=== PATIENT | male | born 1940 | race Hispanic/Latino ===

== ENCOUNTER → 2018-02-17 | Outpatient (CLI) | payer OTHER ==
[~2018-02-17] VITALS: Ht 180.3 cm; Wt 99.8 kg
[~2018-02-17] MED LIST: ALLO300T2 PO; AMLO10TA6 PO; ASPI-555 PO; ATOR40TA71 PO; CETI10TA86 PO; DOXA1TAB2 PO; ENAL20TA PO; FERR-82 PO; FLUT100P6 PUFF; FURO40TA5 PO; GLIP10TA9 PO; HYDR100T27 PO; METO-408 PO; REGADENOSON 0.4 MG/5 ML PF SYG IVP SCH; SITA50TA PO; TAMS-1 PO; TERB250T51 PO; TRAM100T34 PO
== END | disposition home or self-care (01) ==
LOC: SHCH 09:08
PROVIDERS: ATTEND Internal Medicine Cardiovascular Disease
DX: I25.10 Atherosclerotic heart disease of native coronary artery without angina pectoris (principal); E11.9 Type 2 diabetes mellitus without complications; E78.5 Hyperlipidemia, unspecified; M17.0 Bilateral primary osteoarthritis of knee; Z90.49 Acquired absence of other specified parts of digestive tract; Z87.891 Personal history of nicotine dependence
CPT/HCPCS: 78452; 93017; 96374; A9500 ×2; J2785

== ENCOUNTER 2018-07-31 08:27 | Day surgery (SDC) | payer OTHER ==
[2018-07-29 16:19] LABS: BASOPHILS % (AUTO) 1.2 % (0.0-5.0); EOSINOPHILS % (AUTO) 5.9 % (0.0-8.0); HEMATOCRIT 36.5 % (42-54); LYMPHOCYTES % (AUTO) 25.3 % (21.0-51.0); MEAN CORPUSCULAR HEMOGLOBIN 29.2 pg (27.0-33.0); MEAN CORPUSCULAR HGB CONC 32.8 g/dL (32.0-36.0); MEAN CORPUSCULAR VOLUME 88.9 fL (79-99); MONOCYTES % (AUTO) 10.1 % (3.0-13.0); NEUTROPHILS % (AUTO) 57.5 % (40.0-77.0); NUCLEATED RED BLOOD CELLS 0.1 % (0.0-0.19); PLATELET COUNT (AUTO) 243 K/uL (130-400); RED BLOOD CELL COUNT(AUTO) 4.11 MIL/uL (4.50-6.20); RED CELL DISTRIBUTION WIDTH 17.4 % (11.0-15.5); WHITE BLOOD COUNT (AUTO) 6.5 K/uL (4.8-10.8)
[2018-07-29 16:43] VITALS: BP 155/70
[2018-07-29 16:47] LABS: CREATININE 1.3 mg/dL (0.5-1.5)
--- NOTE | 2018-07-29 18:15 | NUR ---
ABNORMAL EKG REPORTED ABNORMAL EKG TO DR. GLORIA MD ANESTHESIA. HE WANTS DR. BROOKE NOTIFIED OF HEART RATE OF [address]KG[address] WILL NOTIFY [address] BROOKE. NO NEW ORDERS GIVEN. OK TO PROCEED WITH SURGERY.
--- NOTE | 2018-07-29 18:19 | NUR ---
ABNORMAL EKG PAGED CINTHIA CASTILLO FOR DR. BROOKE TO REPORT HEART RATE OF [address] GLORIA MD ANESTHESIA. PENDING CALL BACK FROM [facility] VEGA.
--- NOTE | 2018-07-30 08:08 | NUR ---
ABNORMAL EKG NOTIFIED CINTHIA CASTILLO FOR DR. BROOKE REGARDING HEART RATE OF 43 ON EKG. PER SOFIA FOR PATIENT TO REDUCE DOSE OF METOPROLOL 25MG TWICE A DAY TO 12.5MG TWICE A DAY. ALSO TO HOLD METOPROLOL MEDICATION THE DAY OF PROCEDURE. PATIENT NOTIFIED OF NEW INSTRUCTIONS ON MEDICATION AND ALSO TO HOLD ON MEDICATION MORNING OF PROCEDURE. PATIENT VERBALIZED UNDERSTANDING.
[2018-07-31] VITALS (16 sets, daily range): BP systolic 127–157; BP diastolic 53–97
[~2018-07-31] VITALS: Ht 180.3 cm; Wt 95.7 kg
[2018-07-31] MEDS: MEROPENEM 500 MG VIAL IVP SCH ×2 (06:00→10:40)
[~2018-07-31 08:27] MED LIST changes: +ALLO100T PO; -ALLO300T2 PO; -AMLO10TA6 PO; +AMLO5TAB9 PO; -ATOR40TA71 PO; -CETI10TA86 PO; -DOXA1TAB2 PO; -FLUT100P6 PUFF; -FURO40TA5 PO; -METO-408 PO; +METO25TA6 PO; +MULT-1296 PO; -REGADENOSON 0.4 MG/5 ML PF SYG IVP SCH; -TAMS-1 PO; +TAMS0.4C32 PO; -TERB250T51 PO; -TRAM100T34 PO
[2018-07-31] MEDS ORDERED: SODIUM CHLORIDE 0.9% 1000ML 1,000 ML IV ONE (09:20)
--- NOTE | 2018-07-31 10:01 | NUR ---
ASSESS LEGALLY BLIND LEFT EYE Addendum: 07/31/18 at 1002 by FANTASMA FLEMING RN RN Amended: Links added.
[2018-07-31] MEDS ORDERED: BACL10TA PO (10:14)
[2018-07-31] MEDS ORDERED: METOPROLOL PO (10:14)
[2018-07-31] MEDS ORDERED: LIDOCAINE PF 2% 5ML ABBOJECT ONE (10:31)
[2018-07-31] MEDS ORDERED: PROPOFOL 10 MG/ML 20ML VIAL IV ONE (10:32)
[2018-07-31] MEDS ORDERED: FENTANYL CITRATE PF 50 MCG/1 ML 2ML VIAL ONE (10:32)
[2018-07-31] MEDS ORDERED: GENTAMICIN 80 MG/NS 100 ML PB 100 ML IV ONE (10:57)
[2018-07-31] MEDS ORDERED: EPHEDRINE SULFATE 50 MG/ML AMPULE ONE (11:11)
[2018-07-31] MEDS ORDERED: MORPHINE SULFATE 2 MG/ML 1ML SYG ONE (11:59)
[2018-07-31] MEDS ORDERED: OPIUM/BELLADONNA ALKALOIDS 1 EACH SUPP.RECT RC ONE (11:59)
[2018-07-31] MEDS ORDERED: MEPERIDINE-PF 25 MG/ML SYG ONE ×2 (12:16→12:35)
--- NOTE | 2018-07-31 13:40 | NUR ---
PATIENT RECEIVED NEW PT FROM PACU, S/P GREENLIGHT LASER. [address] DRAINING CLEAR YELLOW URINE. DRESSING TO PENIS DRY AND INTACT, FC SECURED TO LEG. PT AWAKE AND ALERT, NO DISTRESS NOTED. VS STABLE ON ARRIVAL.
--- NOTE | 2018-07-31 14:05 | NUR ---
DC DC INSTRUCTIONS GIVEN TO PT SPOUSE WITH RX , INSTRUCTED ON NEW MED REGIMEN AND POSSIBLE SIDE EFFECTS. INSTRUCTED TO F/U WITH DR. BAH. INSTRUCTED ON CHANG CARE, LEG BAG , PT AND SPOUSE "STATED FAMILIAR WITH THAT CARE" PT HAS HAD FC IN THE PAST".
--- NOTE | 2018-07-31 14:10 | NUR ---
DC PT DC HOME VIA WC, NO DISTRESS NOTED. [address], LEG BAG IN PLACE, PT STATED HAS HAD FC IN THE PAST IF FULLY AWARE OF CARE. ACCOMPANIED BY SPOUSE, NO PIV NOTED. NO DISTRESS NOTED. DENIES ANY PAIN OR DISCOMFORTS
== END 2018-07-31 14:10 | disposition home or self-care (01) ==
LOC: DAH 08:27
PROVIDERS: ATTEND Urology
DX: N40.1 Benign prostatic hyperplasia with lower urinary tract symptoms (principal); R39.14 Feeling of incomplete bladder emptying; N30.20 Other chronic cystitis without hematuria; Z98.890 Other specified postprocedural states; N45.2 Orchitis; E11.9 Type 2 diabetes mellitus without complications; I10 Essential (primary) hypertension; M10.9 Gout, unspecified; Z79.899 Other long term (current) drug therapy; Z79.84 Long term (current) use of oral hypoglycemic drugs; E78.00 Pure hypercholesterolemia, unspecified; Z79.01 Long term (current) use of anticoagulants
CPT/HCPCS: 36415; 52648; 80048; 82948 ×2; 85025; 87077; 87088; 87186; 88305; 93005; A4218; A4340; A4354; A4358; A4510; A4600; J1580; J2001; J2175 ×2; J2185; J2704; J3010; J3490; J7030 ×2

== ENCOUNTER → 2018-09-23 | Outpatient (CLI) | payer OTHER ==
[~2018-09-23] MED LIST changes: -ASPI-555 PO; +BACL10TA PO; -METO25TA6 PO; +METOPROLOL PO
== END | disposition home or self-care (01) ==
LOC: RAH 13:42
PROVIDERS: ATTEND Internal Medicine
DX: M50.10 Cervical disc disorder with radiculopathy, unspecified cervical region (principal); M48.02 Spinal stenosis, cervical region; M25.78 Osteophyte, vertebrae
CPT/HCPCS: 72141

== ENCOUNTER 2020-05-29 08:05 | Inpatient (IN) | payer OTHER ==
[~2020-05-29] VITALS: Ht 175.3 cm; Wt 89.3 kg
[~2020-05-29 08:05] MED LIST changes: +AMLO-257 PO; -AMLO5TAB9 PO; -ENAL20TA PO; +ENAL20TA18 PO
[2020-05-29 08:52] LABS: BASOPHILS % (AUTO) 0.1 % (0.0-5.0); HEMATOCRIT 35.9 % (42-54); LYMPHOCYTES % (AUTO) 7.3 % (21.0-51.0); MEAN CORPUSCULAR HGB CONC 32.9 g/dL (32.0-36.0); MEAN CORPUSCULAR VOLUME 91.3 fL (79-99); MONOCYTES % (AUTO) 7.2 % (3.0-13.0); NEUTROPHILS % (AUTO) 85.1 % (40.0-77.0); PLATELET COUNT (AUTO) 229 K/uL (130-400); RED BLOOD CELL COUNT(AUTO) 3.93 MIL/uL (4.50-6.20); RED CELL DISTRIBUTION WIDTH 13.2 % (11.0-15.5); WHITE BLOOD COUNT (AUTO) 7.1 K/uL (4.8-10.8)
[2020-05-29 09:04] LABS: ALBUMIN 2.8 g/dL (3.5-5.0); BILIRUBIN,TOTAL 0.7 mg/dL (0.2-1.0); CREATININE 2.5 mg/dL (0.5-1.5); INR 1.02 (0.85-1.15); POTASSIUM 4.3 mmol/L (3.5-5.1); PROTHROMBIN TIME 10.9 SEC (9.6-11.6); TOTAL PROTEIN, SERUM 6.6 g/dL (6.0-8.3)
[2020-05-29] MEDS ORDERED: ALBUTEROL INHALER 90MCG/INH IH ONE (09:18)
[2020-05-29] MEDS ORDERED: DEXAMETHASONE SOD PHOSPHATE 10MG/ML 1ML VIAL ONE (09:18)
[2020-05-29] MEDS ORDERED: AZITHROMYCIN 500MG+NS 250ML 250 ML IV ONE (09:18)
[2020-05-29] MEDS ORDERED: CEFTRIAXONE 1G VIAL ONE (09:18)
[2020-05-29 10:00] LABS: ERYTHROCYTE SEDIMENTATION RATE 80 MM/HR (0-20)
[2020-05-29 10:48] LABS: ABG BASE EXCESS -9.8 mmol/L (-2.0-3.0); ABG HCO3 15.2 mmol/L (21.0-28.0); ABG PCO2 31 mmHg (35-48)
[2020-05-29] MEDS: INSULIN HUMULIN R 100 UNIT/ML 3ML IV SCH (11:45)
[2020-05-29] MEDS ORDERED: ERGOCALCIFEROL (VITAMIN D2) 50,000 UNIT CAPSULE PO ONE (11:45)
[2020-05-29] MEDS ORDERED: DEXAMETHASONE SOD PHOSPHATE 4 MG/ML 1ML VIAL IVP SCH (11:45)
[2020-05-29] MEDS: PHARMACY COMMUNICATION MISC SCH ×2 (12:15→18:15)
[2020-05-29] MEDS ORDERED: 0.9%NACL 100ML 100 ML IV ONE (12:22)
[2020-05-29] MEDS ORDERED: INSULIN HUMULIN R 100 UNIT/ML 3ML ONE ×2 (12:24→12:32)
[2020-05-29] MEDS ORDERED: INSULIN REGULAR, HUMAN 3ML 100 UNIT in 0.9%NACL 100ML 99 ML IV SCH ×2 (12:30)
[2020-05-29 12:57] LABS: CREATININE 2.4 mg/dL (0.5-1.5); MAGNESIUM 2.4 mg/dL (1.80-2.40); POTASSIUM 4.9 mmol/L (3.5-5.1)
[2020-05-29] MEDS ORDERED: ERGOCALCIFEROL (VITAMIN D2) 50,000 UNIT CAPSULE ONE (13:06)
[2020-05-29] MEDS ORDERED: ACETYLCYSTEINE 600 MG CAPSULE ONE (13:06)
[2020-05-29] MEDS ORDERED: ZINC SULFATE 220 CAPSULE ONE (13:06)
[2020-05-29] MEDS ORDERED: ASCORBIC ACID 500 MG TAB ONE (13:06)
[2020-05-29] MEDS ORDERED: ENOXAPARIN SODIUM 60 MG/0.6 ML SQ ONE (13:36)
[2020-05-29] MEDS ORDERED: ETOMIDATE 20MG VIAL IVP ONE (15:08)
[2020-05-29 17:43] LABS: CREATININE 2.2 mg/dL (0.5-1.5); MAGNESIUM 2.3 mg/dL (1.80-2.40); POTASSIUM 4.6 mmol/L (3.5-5.1)
[2020-05-29 18:39] LABS: ABG BASE EXCESS -9.8 mmol/L (-2.0-3.0); ABG HCO3 15.5 mmol/L (21.0-28.0); ABG OXYGEN SATURATION 98.5 % (95.0-99.0); ABG PCO2 33 mmHg (35-48)
[2020-05-29] MEDS ORDERED: ENOXAPARIN SODIUM 60 MG/0.6 ML SQ SCH (21:00)
[2020-05-29] MEDS ORDERED: FAMOTIDINE 20MG VIAL IV SCH (21:00)
[2020-05-29] MEDS ORDERED: ACETYLCYSTEINE 600 MG CAPSULE PO SCH (21:00)
[2020-05-30] MEDS: PHARMACY COMMUNICATION MISC SCH ×4 (00:15→18:15)
[2020-05-30 00:44] LABS: MAGNESIUM 2.3 mg/dL (1.80-2.40); POTASSIUM 4.3 mmol/L (3.5-5.1)
[2020-05-30 01:54] LABS: ABG BASE EXCESS -8.3 mmol/L (-2.0-3.0); ABG HCO3 16.7 mmol/L (21.0-28.0); ABG OXYGEN SATURATION 93.7 % (95.0-99.0); ABG PCO2 33 mmHg (35-48)
[2020-05-30 04:53] LABS: MAGNESIUM 2.3 mg/dL (1.80-2.40); POTASSIUM 4.3 mmol/L (3.5-5.1)
[2020-05-30] MEDS ORDERED: ONDANSETRON 4MG INJ ONE (05:34)
[2020-05-30 05:50] LABS: ABG HCO3 16.1 mmol/L (21.0-28.0); ABG OXYGEN SATURATION 94.9 % (95.0-99.0); ABG PCO2 33 mmHg (35-48)
[2020-05-30] MEDS ORDERED: ENOXAPARIN SODIUM 60 MG/0.6 ML SQ ONE ×2 (08:37→20:25)
[2020-05-30] MEDS ORDERED: FAMOTIDINE 20MG VIAL IV ONE ×2 (08:37→20:25)
[2020-05-30] MEDS ORDERED: ZINC SULFATE 220 CAPSULE PO SCH (09:00)
[2020-05-30] MEDS ORDERED: ASCORBIC ACID 500 MG TAB PO SCH (09:00)
[2020-05-30] MEDS ORDERED: CEFTRIAXONE 1G VIAL IVP SCH (10:30)
[2020-05-30] MEDS ORDERED: PROPOFOL 1000 MG/100 ML 100 ML IV ONE ×3 (10:37→22:45)
[2020-05-30] MEDS ORDERED: FENTANYL 2500MCG+NS 250ML 250 ML IV ONE (10:38)
[2020-05-30] MEDS ORDERED: DEXAMETHASONE 10MG/ML 1ML VIAL 6 MG in 0.9%NACL 50ML 50 ML IV SCH (11:08)
[2020-05-30] MEDS ORDERED: DOXYCYCLINE HYCLATE 100 MG TABLET PO SCH (11:09)
[2020-05-30] MEDS: INSULIN HUMULIN R 100 UNIT/ML 3ML IV SCH (11:45)
[2020-05-30 12:16] LABS: ABG BASE EXCESS -14.7 mmol/L (-2.0-3.0); ABG OXYGEN SATURATION 97.3 % (95.0-99.0); ABG PCO2 93 mmHg (35-48)
[2020-05-30] MEDS ORDERED: 0.9% NACL 250ML 250 ML IV ONE (12:17)
[2020-05-30] MEDS ORDERED: SODIUM BICARB 8.4% 50ML SYRINGE IVP STA (12:21)
[2020-05-30] MEDS ORDERED: SODIUM BICARB 50MEQ 50ML VIAL 150 ML ONE (12:24)
[2020-05-30 13:13] LABS: ABG BASE EXCESS -8.2 mmol/L (-2.0-3.0); ABG HCO3 23.2 mmol/L (21.0-28.0); ABG OXYGEN SATURATION 98.8 % (95.0-99.0); ABG PCO2 76 mmHg (35-48)
[2020-05-30] MEDS ORDERED: CISATRACURIUM BESYLATE 100 MG in 0.9%NACL 100ML 100 ML IV SCH (13:47)
[2020-05-30] MEDS ORDERED: CEFTRIAXONE 1G VIAL ONE (14:14)
[2020-05-30] MEDS: INSULIN HUMULIN R 100 UNIT/ML 3ML SQ SCH (18:00)
[2020-05-30] MEDS ORDERED: INSULIN HUMULIN R 100 UNIT/ML 3ML ONE (18:18)
[2020-05-30] MEDS ORDERED: 0.9% NACL 500ML IV.SOLN 500 ML IV ONE (18:45)
[2020-05-30] MEDS ORDERED: DOXYCYCLINE 100MG+NS 250ML 250 ML IV ONE (20:25)
[2020-05-30] MEDS: DEXAMETHASONE SOD PHOSPHATE 4 MG/ML 1ML VIAL IVP SCH (21:00)
[2020-05-30] MEDS: INSULIN GLARGINE 100 UNITS/ML 10 ML VIAL SQ SCH (21:00)
[2020-05-30] MEDS ORDERED: ENOXAPARIN SODIUM 60 MG/0.6 ML SQ SCH (21:00)
[2020-05-30] MEDS ORDERED: ENOXAPARIN SODIUM 100 MG/1 ML SQ SCH (21:00)
[2020-05-31] MEDS: PHARMACY COMMUNICATION MISC SCH ×4 (00:15→18:15)
[2020-05-31 03:34] LABS: BASOPHILS % (AUTO) 0.1 % (0.0-5.0); HEMATOCRIT 26.3 % (42-54); LYMPHOCYTES % (AUTO) 2.6 % (21.0-51.0); MEAN CORPUSCULAR HEMOGLOBIN 30.2 pg (27.0-33.0); MEAN CORPUSCULAR HGB CONC 32.7 g/dL (32.0-36.0); MEAN CORPUSCULAR VOLUME 92.3 fL (79-99); MONOCYTES % (AUTO) 2.7 % (3.0-13.0); PLATELET COUNT (AUTO) 266 K/uL (130-400); RED BLOOD CELL COUNT(AUTO) 2.85 MIL/uL (4.50-6.20); RED CELL DISTRIBUTION WIDTH 13.5 % (11.0-15.5); WHITE BLOOD COUNT (AUTO) 13.8 K/uL (4.8-10.8)
[2020-05-31 04:00] LABS: ALBUMIN 1.9 g/dL (3.5-5.0); BILIRUBIN,TOTAL 0.5 mg/dL (0.2-1.0); CREATININE 3.1 mg/dL (0.5-1.5); MAGNESIUM 2.3 mg/dL (1.80-2.40); POTASSIUM 4.8 mmol/L (3.5-5.1)
[2020-05-31 04:12] LABS: CRP QUANTITATIVE 173.5 mg/L (0.00-9.0)
[2020-05-31] MEDS ORDERED: INSULIN HUMULIN R 100 UNIT/ML 3ML ONE ×4 (05:48→22:13)
[2020-05-31] MEDS ORDERED: PROPOFOL 1000 MG/100 ML 100 ML IV ONE ×4 (05:55→21:06)
[2020-05-31] MEDS: INSULIN HUMULIN R 100 UNIT/ML 3ML SQ SCH ×4 (06:00→18:00)
[2020-05-31 07:48] LABS: ABG BASE EXCESS -4.2 mmol/L (-2.0-3.0); ABG HCO3 20.9 mmol/L (21.0-28.0); ABG OXYGEN SATURATION 95.4 % (95.0-99.0); ABG PCO2 39 mmHg (35-48)
[2020-05-31] MEDS: DEXAMETHASONE SOD PHOSPHATE 4 MG/ML 1ML VIAL IVP SCH ×2 (09:00→21:00)
[2020-05-31] MEDS ORDERED: DEXAMETHASONE SOD PHOSPHATE 10MG/ML 1ML VIAL ONE (10:31)
[2020-05-31] MEDS ORDERED: ENOXAPARIN SODIUM 100 MG/1 ML SQ ONE (10:31)
[2020-05-31] MEDS ORDERED: DOXYCYCLINE 100MG+NS 250ML 250 ML IV ONE (10:31)
[2020-05-31] MEDS ORDERED: CEFTRIAXONE 1G VIAL ONE (10:32)
[2020-05-31] MEDS ORDERED: FAMOTIDINE 20MG VIAL IV ONE ×2 (10:32→22:40)
[2020-05-31] MEDS ORDERED: RENAL DOSE IV SCH (11:15)
[2020-05-31] MEDS: CEFEPIME HCL 2 GM VIAL IVP SCH (11:15)
[2020-05-31] MEDS ORDERED: VANCOMYCIN 500MG+NS 100ML 100 ML IV SCH (11:15)
[2020-05-31] MEDS ORDERED: COMPOUND IV REFRIGERATED 1 EACH IVSOLN MISC PRN (11:30)
[2020-05-31] MEDS: INSULIN HUMULIN R 100 UNIT/ML 3ML IV SCH (11:45)
[2020-05-31] MEDS ORDERED: VANCOMYCIN 1G 1.25 GM in 0.9% NACL 250ML 250 ML IV SCH (12:00)
[2020-05-31] MEDS ORDERED: CEFEPIME HCL 1 GM VIAL ONE (13:15)
[2020-05-31] MEDS ORDERED: 0.9%NACL 50ML 50 ML IV ONE (13:16)
[2020-05-31] MEDS ORDERED: FENTANYL 2500MCG+NS 250ML 250 ML IV ONE (15:08)
[2020-05-31] MEDS ORDERED: ACETAMINOPHEN 650 MG SUPPOSITORY RC ONE (17:37)
[2020-05-31] MEDS: INSULIN GLARGINE 100 UNITS/ML 10 ML VIAL SQ SCH (21:00)
[2020-05-31] MEDS ORDERED: DEXAMETHASONE SOD PHOSPHATE 4 MG/ML 1ML VIAL ONE (22:37)
[2020-06-01] VITALS (72 sets, daily range): BP systolic 124–184; BP diastolic 39–65
[2020-06-01] MEDS: PHARMACY COMMUNICATION MISC SCH ×4 (00:15→17:34)
[2020-06-01] MEDS ORDERED: PROPOFOL 1000 MG/100 ML 100 ML IV ONE ×2 (01:27→04:30)
[2020-06-01] MEDS ORDERED: PANTOPRAZOLE 40 MG/VIAL IVP SCH ×2 (03:45→09:00)
[2020-06-01 04:18] LABS: ABG BASE EXCESS -7.3 mmol/L (-2.0-3.0); ABG OXYGEN SATURATION 95.7 % (95.0-99.0); ABG PCO2 53 mmHg (35-48)
[2020-06-01] MEDS: INSULIN HUMULIN R 100 UNIT/ML 3ML SQ SCH ×4 (06:00→17:30)
[2020-06-01 07:18] LABS: BASOPHILS % (AUTO) 0.1 % (0.0-5.0); HEMATOCRIT 31.4 % (42-54); LYMPHOCYTES % (AUTO) 3.2 % (21.0-51.0); MEAN CORPUSCULAR HGB CONC 31.5 g/dL (32.0-36.0); MEAN CORPUSCULAR VOLUME 95.2 fL (79-99); MONOCYTES % (AUTO) 4.6 % (3.0-13.0); NUCLEATED RED BLOOD CELLS 0.2 % (0.0-0.19); PLATELET COUNT (AUTO) 308 K/uL (130-400); RED CELL DISTRIBUTION WIDTH 13.9 % (11.0-15.5); WHITE BLOOD COUNT (AUTO) 12.6 K/uL (4.8-10.8)
[2020-06-01] MEDS: DEXAMETHASONE SOD PHOSPHATE 4 MG/ML 1ML VIAL IVP SCH ×2 (07:48→21:07)
[2020-06-01 07:52] LABS: ALBUMIN 2.1 g/dL (3.5-5.0); BILIRUBIN,TOTAL 0.4 mg/dL (0.2-1.0); CREATININE 4.5 mg/dL (0.5-1.5); CRP QUANTITATIVE 158.8 mg/L (0.00-9.0); PHOSPHORUS 6.7 mg/dL (2.5-4.9); POTASSIUM 5.3 mmol/L (3.5-5.1); TOTAL PROTEIN, SERUM 6.7 g/dL (6.0-8.3)
[2020-06-01] MEDS ORDERED: DEXMEDETOMIDINE HCL 200 MCG/2 ML VIAL IV ONE (09:24)
[2020-06-01] MEDS ORDERED: DEXMEDETOMIDINE HCL 400 MCG in 0.9%NACL 100ML 100 ML IV SCH (09:30)
[2020-06-01] MEDS ORDERED: WATER FOR INJECTION STERILE IVP SCH (11:00)
[2020-06-01] MEDS ORDERED: SODIUM BICARB 8.4% IVP SCH (11:00)
[2020-06-01] MEDS ORDERED: SYRING IVP SCH (11:00)
[2020-06-01] MEDS: CEFEPIME HCL 2 GM VIAL IVP SCH (11:40)
[2020-06-01] MEDS: INSULIN HUMULIN R 100 UNIT/ML 3ML IV SCH (11:42)
[2020-06-01] MEDS: LINEZOLID 600 MG/ISO-OSM 300 ML IV SCH (12:45)
[2020-06-01] MEDS: DOCUSATE NA 100MG/10ML UDCUP PO SCH ×2 (14:15→21:09)
[2020-06-01] MEDS ORDERED: KAYEXALATE 15GM/60ML PO SCH (14:15)
[2020-06-01] MEDS ORDERED: POLYETHYLENE GLYCOL 3350 17 GM POWD.PACK PO PRN (14:15)
[2020-06-01] MEDS ORDERED: FENTANYL 2500MCG+NS 250ML 250 ML IV ONE (18:52)
[2020-06-01] MEDS: INSULIN GLARGINE 100 UNITS/ML 10 ML VIAL SQ SCH (21:09)
[2020-06-02] VITALS (31 sets, daily range): BP systolic 109–193; BP diastolic 41–59
[2020-06-02] MEDS: INSULIN HUMULIN R 100 UNIT/ML 3ML SQ SCH ×5 (00:05→23:25)
[2020-06-02] MEDS: PHARMACY COMMUNICATION MISC SCH ×5 (00:28→23:47)
[2020-06-02] MEDS: LINEZOLID 600 MG/ISO-OSM 300 ML IV SCH ×3 (00:45→19:14)
[2020-06-02 04:09] LABS: BASOPHILS % (AUTO) 0.1 % (0.0-5.0); LYMPHOCYTES % (AUTO) 4.6 % (21.0-51.0); MEAN CORPUSCULAR HEMOGLOBIN 29.6 pg (27.0-33.0); MEAN CORPUSCULAR HGB CONC 32.1 g/dL (32.0-36.0); MEAN CORPUSCULAR VOLUME 92.4 fL (79-99); MONOCYTES % (AUTO) 5.9 % (3.0-13.0); NEUTROPHILS % (AUTO) 87.3 % (40.0-77.0); PLATELET COUNT (AUTO) 293 K/uL (130-400); RED BLOOD CELL COUNT(AUTO) 3.14 MIL/uL (4.50-6.20); RED CELL DISTRIBUTION WIDTH 13.4 % (11.0-15.5); WHITE BLOOD COUNT (AUTO) 7.9 K/uL (4.8-10.8)
[2020-06-02 04:28] LABS: ABG BASE EXCESS -7.1 mmol/L (-2.0-3.0); ABG HCO3 19.6 mmol/L (21.0-28.0); ABG OXYGEN SATURATION 97.4 % (95.0-99.0); ABG PCO2 44 mmHg (35-48)
[2020-06-02 04:31] LABS: ALBUMIN 1.9 g/dL (3.5-5.0); BILIRUBIN,TOTAL 0.3 mg/dL (0.2-1.0); CREATININE 4.4 mg/dL (0.5-1.5); CRP QUANTITATIVE 104.7 mg/L (0.00-9.0); MAGNESIUM 4.1 mg/dL (1.80-2.40); PHOSPHORUS 5.7 mg/dL (2.5-4.9); POTASSIUM 4.1 mmol/L (3.5-5.1); TOTAL PROTEIN, SERUM 6.4 g/dL (6.0-8.3)
[2020-06-02] MEDS: DOCUSATE NA 100MG/10ML UDCUP PO SCH ×3 (05:16→20:23)
[2020-06-02] MEDS: LANSOPRAZOLE 15 MG SOLU TAB GT SCH (08:18)
[2020-06-02] MEDS: DEXAMETHASONE SOD PHOSPHATE 4 MG/ML 1ML VIAL IVP SCH (08:18)
[2020-06-02] MEDS: SENNOSIDES 8.6 MG TABLET PO SCH (08:19)
[2020-06-02] MEDS: PROPOFOL 1000 MG/100 ML IV SCH ×3 (08:19→17:42)
[2020-06-02] MEDS: CEFEPIME HCL 2 GM VIAL IVP SCH (10:26)
[2020-06-02] MEDS: INSULIN HUMULIN R 100 UNIT/ML 3ML IV SCH (10:46)
[2020-06-02] MEDS ORDERED: DOBUTAMINE 250MG/D5 250ML 250 ML IV PRN (12:30)
[2020-06-02] MEDS ORDERED: PHARMACY COMMUNICATION MISC SCH (12:45)
[2020-06-02] MEDS: DEXTROSE 5%-WATER 1,000 ML IV SCH ×2 (13:17→23:19)
[2020-06-02] MEDS: FISH OIL 1000 MG/CAP PO SCH ×2 (13:18→23:26)
[2020-06-02] MEDS ORDERED: FENTANYL 2500MCG+NS 250ML 250 ML IV ONE (13:40)
[2020-06-02] MEDS: ARTIFICAL TEARS SOL 15 ML OD SCH ×3 (15:22→23:19)
[2020-06-02] MEDS: INSULIN GLARGINE 100 UNITS/ML 10 ML VIAL SQ SCH (20:23)
[2020-06-03] VITALS (53 sets, daily range): BP systolic 105–191; BP diastolic 42–59
[2020-06-03] MEDS ORDERED: METOPROLOL TARTRATE 1 MG/ML 5ML VIAL IV ONE (00:09)
[2020-06-03] MEDS: INSULIN HUMULIN R 100 UNIT/ML 3ML SQ SCH ×6 (00:19→18:10)
[2020-06-03] MEDS: PROPOFOL 1000 MG/100 ML IV SCH ×5 (02:13→21:31)
[2020-06-03] MEDS: LORAZEPAM 2 MG/ML 1 ML VIAL IVP PRN ×2 (03:36→05:36)
[2020-06-03] MEDS ORDERED: METOPROLOL TARTRATE 1 MG/ML 5ML VIAL IV PRN (03:45)
[2020-06-03] MEDS: ARTIFICAL TEARS SOL 15 ML OD SCH ×5 (04:36→21:43)
[2020-06-03] MEDS: DOCUSATE NA 100MG/10ML UDCUP PO SCH ×3 (04:36→22:00)
[2020-06-03 06:23] LABS: BASOPHILS % (AUTO) 0.2 % (0.0-5.0); HEMATOCRIT 31.4 % (42-54); LYMPHOCYTES % (AUTO) 2.1 % (21.0-51.0); MEAN CORPUSCULAR HEMOGLOBIN 29.8 pg (27.0-33.0); MEAN CORPUSCULAR HGB CONC 31.8 g/dL (32.0-36.0); MEAN CORPUSCULAR VOLUME 93.5 fL (79-99); MONOCYTES % (AUTO) 2.3 % (3.0-13.0); NEUTROPHILS % (AUTO) 91.9 % (40.0-77.0); NUCLEATED RED BLOOD CELLS 0.3 % (0.0-0.19); PLATELET COUNT (AUTO) 320 K/uL (130-400); RED BLOOD CELL COUNT(AUTO) 3.36 MIL/uL (4.50-6.20); RED CELL DISTRIBUTION WIDTH 13.6 % (11.0-15.5); WHITE BLOOD COUNT (AUTO) 11.7 K/uL (4.8-10.8)
[2020-06-03] MEDS: PHARMACY COMMUNICATION MISC SCH ×3 (06:52→17:36)
[2020-06-03 07:07] LABS: ALBUMIN 1.8 g/dL (3.5-5.0); BILIRUBIN,TOTAL 0.3 mg/dL (0.2-1.0); CREATININE 4.1 mg/dL (0.5-1.5); CRP QUANTITATIVE 53.3 mg/L (0.00-9.0); POTASSIUM 3.6 mmol/L (3.5-5.1); TOTAL PROTEIN, SERUM 6.3 g/dL (6.0-8.3)
[2020-06-03] MEDS: SENNOSIDES 8.6 MG TABLET PO SCH (09:00)
[2020-06-03] MEDS: LANSOPRAZOLE 15 MG SOLU TAB GT SCH (09:00)
[2020-06-03] MEDS ORDERED: HYDRALAZINE 20MG/ML VIAL IV PRN (11:30)
[2020-06-03] MEDS ORDERED: ENALAPRILAT DIHYDRATE 1.25MG/ML 1ML VIAL IV PRN (12:00)
[2020-06-03] MEDS: CEFEPIME HCL 2 GM VIAL IVP SCH (12:19)
[2020-06-03] MEDS: LINEZOLID 600 MG/ISO-OSM 300 ML IV SCH (12:48)
[2020-06-03] MEDS: FISH OIL 1000 MG/CAP PO SCH (15:12)
[2020-06-03] MEDS ORDERED: FENTANYL 2500MCG+NS 250ML 250 ML IV ONE (16:16)
[2020-06-03] MEDS ORDERED: INSULIN GLARGINE 100 UNITS/ML 10 ML VIAL SQ SCH ×2 (21:00)
[2020-06-03] MEDS: HYDRALAZINE HCL 10 MG TABLET GT SCH (21:41)
[2020-06-03] MEDS: INSULIN GLARGINE 100 UNITS/ML 10 ML VIAL SQ SCH (22:47)
[2020-06-04] VITALS (87 sets, daily range): BP systolic 13–211; BP diastolic -1–78
[2020-06-04] MEDS: PHARMACY COMMUNICATION MISC SCH ×3 (00:04→16:41)
[2020-06-04] MEDS: FISH OIL 1000 MG/CAP PO SCH ×2 (00:57→13:39)
[2020-06-04] MEDS: LINEZOLID 600 MG/ISO-OSM 300 ML IV SCH ×2 (00:57→12:50)
[2020-06-04] MEDS: ARTIFICAL TEARS SOL 15 ML OD SCH ×6 (00:59→20:52)
[2020-06-04] MEDS: INSULIN HUMULIN R 100 UNIT/ML 3ML SQ SCH ×6 (01:20→18:42)
[2020-06-04] MEDS ORDERED: 0.9% NACL 500ML IV.SOLN 500 ML IV ONE (01:43)
[2020-06-04] MEDS: PROPOFOL 1000 MG/100 ML IV SCH ×5 (02:43→10:31)
[2020-06-04 03:20] LABS: ABG BASE EXCESS -10.8 mmol/L (-2.0-3.0); ABG HCO3 17.6 mmol/L (21.0-28.0); ABG OXYGEN SATURATION 91.9 % (95.0-99.0); ABG PCO2 49 mmHg (35-48)
[2020-06-04 04:37] LABS: BASOPHILS % (AUTO) 0.1 % (0.0-5.0); EOSINOPHILS % (AUTO) 0.1 % (0.0-8.0); HEMATOCRIT 30.5 % (42-54); LYMPHOCYTES % (AUTO) 3.8 % (21.0-51.0); MEAN CORPUSCULAR HGB CONC 32.5 g/dL (32.0-36.0); MEAN CORPUSCULAR VOLUME 92.4 fL (79-99); MONOCYTES % (AUTO) 2.3 % (3.0-13.0); NEUTROPHILS % (AUTO) 90.9 % (40.0-77.0); NUCLEATED RED BLOOD CELLS 0.7 % (0.0-0.19); PLATELET COUNT (AUTO) 263 K/uL (130-400); RED CELL DISTRIBUTION WIDTH 14.1 % (11.0-15.5); WHITE BLOOD COUNT (AUTO) 10.5 K/uL (4.8-10.8)
[2020-06-04 05:12] LABS: ALBUMIN 1.7 g/dL (3.5-5.0); BILIRUBIN,TOTAL 0.3 mg/dL (0.2-1.0); CREATININE 4.1 mg/dL (0.5-1.5); MAGNESIUM 2.4 mg/dL (1.80-2.40); PHOSPHORUS 5.8 mg/dL (2.5-4.9); POTASSIUM 3.8 mmol/L (3.5-5.1); TOTAL PROTEIN, SERUM 6.1 g/dL (6.0-8.3)
[2020-06-04] MEDS ORDERED: INSULIN REGULAR, HUMAN 3ML 100 UNIT in 0.9%NACL 100ML 99 ML IV PRN ×2 (05:45)
[2020-06-04] MEDS: HYDRALAZINE HCL 10 MG TABLET GT SCH (06:31)
[2020-06-04] MEDS: DOCUSATE NA 100MG/10ML UDCUP PO SCH ×3 (06:33→22:22)
[2020-06-04] MEDS ORDERED: METOPROLOL TARTRATE 1 MG/ML 5ML VIAL IV STA (07:39)
[2020-06-04] MEDS ORDERED: METOPROLOL TARTRATE 1 MG/ML 5ML VIAL IV SCH (07:45)
[2020-06-04] MEDS ORDERED: WATER IV SCH (07:52)
[2020-06-04] MEDS ORDERED: DEXTROSE 5% IV SCH (07:52)
[2020-06-04] MEDS ORDERED: ESMOLOL HCL IV SCH (07:52)
[2020-06-04] MEDS ORDERED: DEXMEDETOMIDINE HCL 200 MCG in 0.9%NACL 50ML 50 ML IV SCH (08:06)
[2020-06-04] MEDS: SENNOSIDES 8.6 MG TABLET PO SCH (09:02)
[2020-06-04] MEDS: DEXAMETHASONE SOD PHOSPHATE 4 MG/ML 1ML VIAL IV SCH (09:02)
[2020-06-04] MEDS: LANSOPRAZOLE 15 MG SOLU TAB GT SCH (09:03)
[2020-06-04] MEDS: INSULIN GLARGINE 100 UNITS/ML 10 ML VIAL SQ SCH ×2 (09:04→21:10)
[2020-06-04] MEDS: CEFEPIME HCL 2 GM VIAL IVP SCH (11:30)
[2020-06-04] MEDS: POTASSIUM CHLORIDE 10MEQ/100ML 100 ML IV PRN (11:30)
[2020-06-04] MEDS: HYDRALAZINE 25MG TABLET GT SCH ×2 (13:38→22:00)
[2020-06-04] MEDS: PROPOFOL 1000 MG/100 ML IV PRN (14:36)
[2020-06-04] MEDS: LORAZEPAM 2 MG/ML 1 ML VIAL IVP PRN (15:16)
[2020-06-04] MEDS ORDERED: HEPARIN 10,000 UNIT/10ML (1,000 UNIT/ML) VIAL ONE (16:16)
[2020-06-04] MEDS ORDERED: HEPARIN 5,000 UNIT VIAL ONE (16:16)
[2020-06-04] MEDS ORDERED: HEPARIN 5,000 UNIT VIAL IJ PRN (16:30)
[2020-06-04] MEDS ORDERED: NITROGLYCERIN 0.4 MG SL TAB SL PRN (16:30)
[2020-06-04] MEDS ORDERED: 0.9%NACL 1000ML 1,000 ML IV PRN (16:30)
[2020-06-04] MEDS ORDERED: 0.9%NACL 1000ML IV PRN (16:30)
[2020-06-04] MEDS ORDERED: ACETAMINOPHEN 325 MG TAB PO PRN (16:30)
[2020-06-04] MEDS: FENTANYL 2500MCG+NS 250ML 250 ML IV SCH (18:48)
[2020-06-05] VITALS (95 sets, daily range): BP systolic 70–290; BP diastolic 32–288
[2020-06-05] MEDS: INSULIN HUMULIN R 100 UNIT/ML 3ML SQ SCH ×7 (00:30→18:14)
[2020-06-05] MEDS: LINEZOLID 600 MG/ISO-OSM 300 ML IV SCH ×2 (00:31→13:17)
[2020-06-05] MEDS: ARTIFICAL TEARS SOL 15 ML OD SCH ×6 (00:41→21:09)
[2020-06-05] MEDS: FISH OIL 1000 MG/CAP PO SCH ×2 (01:27→12:51)
[2020-06-05 01:34] LABS: CREATININE 3.2 mg/dL (0.5-1.5); POTASSIUM 4.5 mmol/L (3.5-5.1)
[2020-06-05 04:07] LABS: ABG HCO3 20.1 mmol/L (21.0-28.0); ABG PCO2 46 mmHg (35-48)
[2020-06-05] MEDS: PROPOFOL 1000 MG/100 ML IV PRN ×2 (04:26→10:37)
[2020-06-05 04:45] LABS: BASOPHILS % (AUTO) 0.2 % (0.0-5.0); EOSINOPHILS % (AUTO) 0.1 % (0.0-8.0); HEMATOCRIT 32.3 % (42-54); LYMPHOCYTES % (AUTO) 2.8 % (21.0-51.0); MEAN CORPUSCULAR HEMOGLOBIN 29.7 pg (27.0-33.0); MEAN CORPUSCULAR HGB CONC 32.5 g/dL (32.0-36.0); MEAN CORPUSCULAR VOLUME 91.2 fL (79-99); MONOCYTES % (AUTO) 2.5 % (3.0-13.0); NEUTROPHILS % (AUTO) 89.2 % (40.0-77.0); NUCLEATED RED BLOOD CELLS 2.3 % (0.0-0.19); PLATELET COUNT (AUTO) 220 K/uL (130-400); RED BLOOD CELL COUNT(AUTO) 3.54 MIL/uL (4.50-6.20); RED CELL DISTRIBUTION WIDTH 14.2 % (11.0-15.5); WHITE BLOOD COUNT (AUTO) 13.2 K/uL (4.8-10.8)
[2020-06-05 05:03] LABS: ALBUMIN 1.7 g/dL (3.5-5.0); BILIRUBIN,TOTAL 0.2 mg/dL (0.2-1.0); CREATININE 3.3 mg/dL (0.5-1.5); MAGNESIUM 2.2 mg/dL (1.80-2.40); PHOSPHORUS 8.4 mg/dL (2.5-4.9); POTASSIUM 4.5 mmol/L (3.5-5.1); TOTAL PROTEIN, SERUM 6.4 g/dL (6.0-8.3)
[2020-06-05] MEDS: DOCUSATE NA 100MG/10ML UDCUP PO SCH ×3 (06:59→22:16)
[2020-06-05] MEDS: HYDRALAZINE 25MG TABLET GT SCH ×3 (06:59→21:23)
[2020-06-05] MEDS: SENNOSIDES 8.6 MG TABLET PO SCH (07:38)
[2020-06-05] MEDS: DEXAMETHASONE SOD PHOSPHATE 4 MG/ML 1ML VIAL IV SCH (07:38)
[2020-06-05] MEDS: LORAZEPAM 2 MG/ML 1 ML VIAL IVP PRN ×3 (07:38→17:29)
[2020-06-05] MEDS: LANSOPRAZOLE 15 MG SOLU TAB GT SCH (07:41)
[2020-06-05] MEDS: INSULIN GLARGINE 100 UNITS/ML 10 ML VIAL SQ SCH ×2 (09:00→21:21)
[2020-06-05] MEDS ORDERED: PHENYLEPHRINE HCL 50 MG in 0.9% NACL 250ML 250 ML IV PRN (09:45)
[2020-06-05] MEDS ORDERED: NOREPINEPHRIN 4MG/NS 250ML 250 ML IV SCH (09:45)
[2020-06-05] MEDS: CEFEPIME HCL 2 GM VIAL IVP SCH (10:37)
[2020-06-05 11:10] LABS: HEMATOCRIT 32.1 % (42-54)
[2020-06-05 11:20] LABS: HEMOGLOBIN A1C 9.1 % (4.0-6.0)
[2020-06-05 12:01] LABS: % IRON SATURATION 41.6 % (30-44)
[2020-06-05 12:06] LABS: ALBUMIN 1.8 g/dL (3.5-5.0); CREATININE 2.6 mg/dL (0.5-1.5)
[2020-06-05] MEDS: AMLODIPINE-BENAZEPRIL 5-10 MG PO SCH (12:51)
[2020-06-05] MEDS ORDERED: LABETALOL 20MG VIAL IV STA (16:04)
[2020-06-05] MEDS ORDERED: [UNRECOGNIZED DRUG - OTHER] IV PRN (19:45)
[2020-06-05] MEDS ORDERED: VECURONIUM IV PRN (19:45)
[2020-06-05] MEDS: ALBUMIN (HUMAN) 25% 50 ML IV SCH (21:08)
[2020-06-05] MEDS: FUROSEMIDE 20MG VIAL IV SCH (21:09)
[2020-06-06] VITALS (43 sets, daily range): BP systolic 97–198; BP diastolic 48–79
[2020-06-06] MEDS: INSULIN HUMULIN R 100 UNIT/ML 3ML SQ SCH ×6 (00:15→18:00)
[2020-06-06] MEDS: ARTIFICAL TEARS SOL 15 ML OD SCH ×6 (00:15→20:18)
[2020-06-06] MEDS: FISH OIL 1000 MG/CAP PO SCH ×2 (00:16→13:45)
[2020-06-06] MEDS: LINEZOLID 600 MG/ISO-OSM 300 ML IV SCH ×2 (00:16→13:45)
[2020-06-06] MEDS: FENTANYL 2500MCG+NS 250ML 250 ML IV SCH (03:05)
[2020-06-06 04:01] LABS: ABG BASE EXCESS -4.1 mmol/L (-2.0-3.0); ABG HCO3 21.1 mmol/L (21.0-28.0); ABG OXYGEN SATURATION 90.9 % (95.0-99.0); ABG PCO2 39 mmHg (35-48)
[2020-06-06] MEDS: VECURONIUM 10MG/10ML IV PRN ×2 (04:40→07:04)
[2020-06-06 04:53] LABS: HEMATOCRIT 28.7 % (42-54); MEAN CORPUSCULAR HEMOGLOBIN 29.4 pg (27.0-33.0); MEAN CORPUSCULAR HGB CONC 32.4 g/dL (32.0-36.0); MEAN CORPUSCULAR VOLUME 90.8 fL (79-99); PLATELET COUNT (AUTO) 200 K/uL (130-400); RED BLOOD CELL COUNT(AUTO) 3.16 MIL/uL (4.50-6.20); RED CELL DISTRIBUTION WIDTH 14.2 % (11.0-15.5); WHITE BLOOD COUNT (AUTO) 14.2 K/uL (4.8-10.8)
[2020-06-06] MEDS: ALBUMIN (HUMAN) 25% 50 ML IV SCH ×2 (04:56→13:45)
[2020-06-06] MEDS: FUROSEMIDE 20MG VIAL IV SCH ×2 (04:57→11:33)
[2020-06-06] MEDS: DOCUSATE NA 100MG/10ML UDCUP PO SCH ×3 (04:58→20:21)
[2020-06-06] MEDS: HYDRALAZINE 25MG TABLET GT SCH ×3 (04:59→22:23)
[2020-06-06] MEDS: DEXMEDETOMIDINE HCL 400 MCG in 0.9%NACL 100ML 100 ML IV SCH (05:00)
[2020-06-06 05:15] LABS: ALBUMIN 1.7 g/dL (3.5-5.0); BILIRUBIN,TOTAL 0.4 mg/dL (0.2-1.0); CREATININE 3.2 mg/dL (0.5-1.5); MAGNESIUM 2.4 mg/dL (1.80-2.40); PHOSPHORUS 7.1 mg/dL (2.5-4.9); POTASSIUM 4.8 mmol/L (3.5-5.1); TOTAL PROTEIN, SERUM 6.4 g/dL (6.0-8.3)
[2020-06-06 05:19] LABS: BAND NEUTROPHILS % (MANUAL) 2 % (0-2); LYMPHOCYTES % (MANUAL) 7 % (22-44); MAN.DIFF COMMENT-IMPRESSION MANUAL DIFFERENTIAL; METAMYELOCYTES % 1 % (0-0); MONOCYTES % (MANUAL) 2 % (2-9); SEGMENTED NEUTROPHILS % 88 % (40-70)
[2020-06-06 06:12] LABS: HEPATITIS Bs ANTIGEN SCREEN P Negative (Negative)
[2020-06-06] MEDS: LORAZEPAM 2 MG/ML 1 ML VIAL IVP PRN ×2 (06:23→17:47)
[2020-06-06] MEDS: LANSOPRAZOLE 15 MG SOLU TAB GT SCH (08:29)
[2020-06-06] MEDS: DEXAMETHASONE SOD PHOSPHATE 4 MG/ML 1ML VIAL IV SCH (08:29)
[2020-06-06] MEDS: INSULIN GLARGINE 100 UNITS/ML 10 ML VIAL SQ SCH ×2 (08:31→21:09)
[2020-06-06] MEDS: HYDROCHLOROTHIAZIDE 25 MG TABLET GT SCH (08:32)
[2020-06-06] MEDS: AMLODIPINE-BENAZEPRIL 5-10 MG PO SCH (08:34)
[2020-06-06] MEDS: SENNOSIDES 8.6 MG TABLET PO SCH (08:35)
[2020-06-06] MEDS: LABETALOL 20MG VIAL IV PRN (10:04)
[2020-06-06] MEDS: MIDAZOLAM 100MG-0.9% NS 100ML 100ML BAG IV SCH (11:29)
[2020-06-06] MEDS: CEFEPIME HCL 2 GM VIAL IVP SCH (11:33)
[2020-06-06] MEDS ORDERED: METOPROLOL TARTRATE 50 MG TAB ONE (18:35)
[2020-06-06] MEDS: LABETALOL 20MG SYG IV SCH (21:00)
[2020-06-06] MEDS: METOPROLOL TARTRATE 50 MG TAB PO SCH (21:51)
[2020-06-07] VITALS (42 sets, daily range): BP systolic 103–188; BP diastolic 41–87
[2020-06-07] MEDS: ARTIFICAL TEARS SOL 15 ML OD SCH ×7 (00:12→23:48)
[2020-06-07] MEDS: INSULIN HUMULIN R 100 UNIT/ML 3ML SQ SCH ×6 (00:18→17:47)
[2020-06-07] MEDS: LINEZOLID 600 MG/ISO-OSM 300 ML IV SCH ×2 (00:21→12:19)
[2020-06-07] MEDS: FISH OIL 1000 MG/CAP PO SCH ×2 (01:28→12:20)
[2020-06-07] MEDS: LABETALOL 20MG SYG IV SCH ×9 (02:59→23:51)
[2020-06-07] MEDS: DOCUSATE NA 100MG/10ML UDCUP PO SCH ×3 (03:09→22:00)
[2020-06-07] MEDS: VECURONIUM 10MG/10ML IV PRN (03:57)
[2020-06-07] MEDS: MIDAZOLAM 100MG-0.9% NS 100ML 100ML BAG IV SCH (03:57)
[2020-06-07] MEDS: FENTANYL 2500MCG+NS 250ML 250 ML IV SCH (03:57)
[2020-06-07 06:06] LABS: HEMATOCRIT 25.8 % (42-54); MEAN CORPUSCULAR HEMOGLOBIN 29.3 pg (27.0-33.0); MEAN CORPUSCULAR HGB CONC 32.2 g/dL (32.0-36.0); MEAN CORPUSCULAR VOLUME 91.2 fL (79-99); NUCLEATED RED BLOOD CELLS 1.5 % (0.0-0.19); PLATELET COUNT (AUTO) 188 K/uL (130-400); RED BLOOD CELL COUNT(AUTO) 2.83 MIL/uL (4.50-6.20); RED CELL DISTRIBUTION WIDTH 14.2 % (11.0-15.5); WHITE BLOOD COUNT (AUTO) 12.2 K/uL (4.8-10.8)
[2020-06-07] MEDS: HYDRALAZINE 25MG TABLET GT SCH ×3 (06:24→23:47)
[2020-06-07 06:29] LABS: ALBUMIN 1.9 g/dL (3.5-5.0); BILIRUBIN,TOTAL 0.5 mg/dL (0.2-1.0); CREATININE 2.4 mg/dL (0.5-1.5); MAGNESIUM 2.3 mg/dL (1.80-2.40); PHOSPHORUS 5.6 mg/dL (2.5-4.9); POTASSIUM 3.8 mmol/L (3.5-5.1); TOTAL PROTEIN, SERUM 6.2 g/dL (6.0-8.3)
[2020-06-07 07:05] LABS: ABG BASE EXCESS 1.7 mmol/L (-2.0-3.0); ABG HCO3 26.2 mmol/L (21.0-28.0); ABG OXYGEN SATURATION 86.4 % (95.0-99.0); ABG PCO2 41 mmHg (35-48)
[2020-06-07 07:26] LABS: LYMPHOCYTES % (MANUAL) 4 % (22-44); MAN.DIFF COMMENT-IMPRESSION MANUAL DIFFERENTIAL; MONOCYTES % (MANUAL) 2 % (2-9); PLATELET MORPHOLOGY COMMENT ADEQUATE; SEGMENTED NEUTROPHILS % 94 % (40-70)
[2020-06-07] MEDS: HYDROCHLOROTHIAZIDE 25 MG TABLET GT SCH (08:36)
[2020-06-07] MEDS: DEXAMETHASONE SOD PHOSPHATE 4 MG/ML 1ML VIAL IV SCH (08:36)
[2020-06-07] MEDS: LANSOPRAZOLE 15 MG SOLU TAB GT SCH (08:37)
[2020-06-07] MEDS: METOPROLOL TARTRATE 50 MG TAB PO SCH ×2 (08:38→20:32)
[2020-06-07] MEDS: POTASSIUM CHLORIDE 10MEQ/100ML 100 ML IV PRN (08:42)
[2020-06-07] MEDS: INSULIN GLARGINE 100 UNITS/ML 10 ML VIAL SQ SCH ×2 (08:44→20:34)
[2020-06-07] MEDS: SENNOSIDES 8.6 MG TABLET PO SCH (09:00)
[2020-06-07] MEDS: AMLODIPINE-BENAZEPRIL 5-10 MG PO SCH (09:00)
[2020-06-07] MEDS ORDERED: FUROSEMIDE 40MG VIAL IV SCH ×2 (09:15→17:00)
[2020-06-07] MEDS: CEFEPIME HCL 2 GM VIAL IVP SCH (12:21)
[2020-06-07] MEDS: LABETALOL 20MG VIAL IV PRN ×4 (12:22→20:03)
[2020-06-07] MEDS ORDERED: MIDAZOLAM 100MG-0.9% NS 100ML 100ML BAG IV SCH ×2 (12:30→12:45)
[2020-06-07] MEDS ORDERED: MIDAZOLAM 100MG-0.9% NS 100ML 100 ML IV SCH (12:45)
[2020-06-07] MEDS: MIDAZOLAM 100MG-0.9% NS 100ML 100 ML IV SCH (12:55)
[2020-06-07] MEDS ORDERED: ALBUMIN (HUMAN) 25% 50 ML IV SCH (19:00)
[2020-06-08] VITALS (42 sets, daily range): BP systolic 110–186; BP diastolic 48–87
[2020-06-08] MEDS: INSULIN HUMULIN R 100 UNIT/ML 3ML SQ SCH ×5 (00:08→18:18)
[2020-06-08] MEDS: FISH OIL 1000 MG/CAP PO SCH ×2 (00:15→11:54)
[2020-06-08] MEDS: LINEZOLID 600 MG/ISO-OSM 300 ML IV SCH ×2 (00:15→12:29)
[2020-06-08] MEDS: LABETALOL 20MG SYG IV SCH ×7 (03:00→15:00)
[2020-06-08] MEDS: MIDAZOLAM 100MG-0.9% NS 100ML 100 ML IV SCH ×2 (03:03→15:55)
[2020-06-08] MEDS: ARTIFICAL TEARS SOL 15 ML OD SCH ×5 (04:03→20:48)
[2020-06-08] MEDS: VECURONIUM 10MG/10ML IV PRN (04:10)
[2020-06-08] MEDS: FENTANYL 2500MCG+NS 250ML 250 ML IV SCH (04:24)
[2020-06-08 06:13] LABS: BASOPHILS % (AUTO) 0.3 % (0.0-5.0); EOSINOPHILS % (AUTO) 0.5 % (0.0-8.0); LYMPHOCYTES % (AUTO) 4.1 % (21.0-51.0); MEAN CORPUSCULAR HEMOGLOBIN 29.3 pg (27.0-33.0); MEAN CORPUSCULAR HGB CONC 31.7 g/dL (32.0-36.0); MEAN CORPUSCULAR VOLUME 92.6 fL (79-99); MONOCYTES % (AUTO) 4.7 % (3.0-13.0); NEUTROPHILS % (AUTO) 83.1 % (40.0-77.0); NUCLEATED RED BLOOD CELLS 1.1 % (0.0-0.19); PLATELET COUNT (AUTO) 144 K/uL (130-400); RED BLOOD CELL COUNT(AUTO) 3.24 MIL/uL (4.50-6.20); RED CELL DISTRIBUTION WIDTH 14.1 % (11.0-15.5); WHITE BLOOD COUNT (AUTO) 7.5 K/uL (4.8-10.8)
[2020-06-08] MEDS: DOCUSATE NA 100MG/10ML UDCUP PO SCH (06:18)
[2020-06-08] MEDS: HYDRALAZINE 25MG TABLET GT SCH ×3 (06:19→23:01)
[2020-06-08 06:24] LABS: CREATININE 2.9 mg/dL (0.5-1.5); POTASSIUM 4.9 mmol/L (3.5-5.1)
[2020-06-08 06:57] LABS: CRP QUANTITATIVE 145.9 mg/L (0.00-9.0)
[2020-06-08 06:57] LABS: ABG BASE EXCESS 1.6 mmol/L (-2.0-3.0); ABG HCO3 26.1 mmol/L (21.0-28.0); ABG OXYGEN SATURATION 91.6 % (95.0-99.0); ABG PCO2 41 mmHg (35-48)
[2020-06-08 07:06] LABS: B-TYPE NATRIURETIC PEPTIDE 100 pg/mL (0-100)
[2020-06-08] MEDS: LANSOPRAZOLE 15 MG SOLU TAB GT SCH (08:41)
[2020-06-08] MEDS: DEXAMETHASONE SOD PHOSPHATE 4 MG/ML 1ML VIAL IV SCH (08:41)
[2020-06-08] MEDS: AMLODIPINE 5 MG TAB PO SCH (08:41)
[2020-06-08] MEDS: METOPROLOL TARTRATE 50 MG TAB PO SCH ×2 (08:41→20:48)
[2020-06-08] MEDS: SENNOSIDES 8.6 MG TABLET PO SCH (08:41)
[2020-06-08] MEDS: INSULIN GLARGINE 100 UNITS/ML 10 ML VIAL SQ SCH ×2 (08:46→20:54)
[2020-06-08] MEDS ORDERED: FUROSEMIDE 40MG VIAL IV SCH (11:00)
[2020-06-08] MEDS: CEFEPIME HCL 2 GM VIAL IVP SCH (11:10)
[2020-06-08] MEDS ORDERED: LORAZEPAM 2 MG/ML 1 ML VIAL IM PRN (13:00)
[2020-06-09] VITALS (82 sets, daily range): BP systolic 107–178; BP diastolic 46–76
[2020-06-09] MEDS: INSULIN HUMULIN R 100 UNIT/ML 3ML SQ SCH ×5 (00:41→17:57)
[2020-06-09] MEDS: ARTIFICAL TEARS SOL 15 ML OD SCH ×4 (00:41→10:49)
[2020-06-09] MEDS: LINEZOLID 600 MG/ISO-OSM 300 ML IV SCH ×3 (01:25→22:45)
[2020-06-09] MEDS: FISH OIL 1000 MG/CAP PO SCH ×2 (01:25→13:47)
[2020-06-09] MEDS: MIDAZOLAM 100MG-0.9% NS 100ML 100 ML IV SCH ×2 (01:44→13:48)
[2020-06-09] MEDS ORDERED: FENTANYL 2500MCG+NS 250ML 250 ML IV ONE (01:48)
[2020-06-09] MEDS: FENTANYL 2500MCG+NS 250ML 250 ML IV SCH (01:53)
[2020-06-09 05:40] LABS: BASOPHILS % (AUTO) 0.1 % (0.0-5.0); EOSINOPHILS % (AUTO) 0.5 % (0.0-8.0); HEMATOCRIT 25.9 % (42-54); LYMPHOCYTES % (AUTO) 5.5 % (21.0-51.0); MEAN CORPUSCULAR HEMOGLOBIN 29.6 pg (27.0-33.0); MEAN CORPUSCULAR VOLUME 92.5 fL (79-99); MONOCYTES % (AUTO) 6.4 % (3.0-13.0); NEUTROPHILS % (AUTO) 82.6 % (40.0-77.0); NUCLEATED RED BLOOD CELLS 0.4 % (0.0-0.19); PLATELET COUNT (AUTO) 144 K/uL (130-400); RED CELL DISTRIBUTION WIDTH 13.7 % (11.0-15.5); WHITE BLOOD COUNT (AUTO) 9.9 K/uL (4.8-10.8)
[2020-06-09 05:50] LABS: CREATININE 2.9 mg/dL (0.5-1.5)
[2020-06-09 05:53] LABS: % IRON SATURATION 21.3 % (30-44)
[2020-06-09] MEDS: LABETALOL 20MG SYG IV SCH ×8 (06:00→21:00)
[2020-06-09] MEDS: HYDRALAZINE 25MG TABLET GT SCH ×5 (06:00→22:45)
[2020-06-09] MEDS: ENOXAPARIN SODIUM 60 MG/0.6 ML SQ SCH (08:25)
[2020-06-09] MEDS: AMLODIPINE 5 MG TAB PO SCH (08:26)
[2020-06-09] MEDS: DEXAMETHASONE SOD PHOSPHATE 4 MG/ML 1ML VIAL IV SCH (08:26)
[2020-06-09] MEDS: METOPROLOL TARTRATE 50 MG TAB PO SCH ×2 (08:26→21:33)
[2020-06-09] MEDS: LANSOPRAZOLE 15 MG SOLU TAB GT SCH (08:27)
[2020-06-09] MEDS: SENNOSIDES 8.6 MG TABLET PO SCH (08:27)
[2020-06-09] MEDS: INSULIN GLARGINE 100 UNITS/ML 10 ML VIAL SQ SCH ×2 (08:39→21:08)
[2020-06-09] MEDS ORDERED: ENOXAPARIN SODIUM 0.5 MG/KG EACH SQ SCH (09:00)
[2020-06-09] MEDS: CEFEPIME HCL 2 GM VIAL IVP SCH (10:48)
[2020-06-09] MEDS ORDERED: FUROSEMIDE 40MG VIAL IV SCH (11:22)
[2020-06-09] MEDS: LORAZEPAM 2 MG/ML 1 ML VIAL IVP PRN (13:42)
[2020-06-09] MEDS ORDERED: EPOETIN ALFA 10,000 UNIT/ML VIAL SQ SCH (21:00)
[2020-06-09] MEDS ORDERED: EPOETIN ALFA-EPBX (NON-ESRD) 10,000 UNIT/ML VIAL SQ SCH (22:00)
[2020-06-10] VITALS (78 sets, daily range): BP systolic 107–187; BP diastolic 47–90
[2020-06-10] MEDS: INSULIN HUMULIN R 100 UNIT/ML 3ML SQ SCH ×5 (00:35→18:11)
[2020-06-10] MEDS: FISH OIL 1000 MG/CAP PO SCH ×2 (01:45→12:56)
[2020-06-10] MEDS ORDERED: FENTANYL 2500MCG+NS 250ML 250 ML IV ONE (01:57)
[2020-06-10] MEDS: LABETALOL 20MG SYG IV SCH ×8 (03:00→22:40)
[2020-06-10] MEDS: MIDAZOLAM 100MG-0.9% NS 100ML 100 ML IV SCH ×2 (04:12→17:13)
[2020-06-10 04:52] LABS: BASOPHILS % (AUTO) 0.1 % (0.0-5.0); EOSINOPHILS % (AUTO) 0.7 % (0.0-8.0); HEMATOCRIT 24.1 % (42-54); LYMPHOCYTES % (AUTO) 6.5 % (21.0-51.0); MEAN CORPUSCULAR HEMOGLOBIN 29.6 pg (27.0-33.0); MEAN CORPUSCULAR VOLUME 92.7 fL (79-99); MONOCYTES % (AUTO) 6.2 % (3.0-13.0); NEUTROPHILS % (AUTO) 82.1 % (40.0-77.0); NUCLEATED RED BLOOD CELLS 0.2 % (0.0-0.19); PLATELET COUNT (AUTO) 149 K/uL (130-400); RED CELL DISTRIBUTION WIDTH 13.9 % (11.0-15.5); WHITE BLOOD COUNT (AUTO) 9.9 K/uL (4.8-10.8)
[2020-06-10 05:09] LABS: CREATININE 2.9 mg/dL (0.5-1.5); CRP QUANTITATIVE 65.1 mg/L (0.00-9.0); POTASSIUM 5.1 mmol/L (3.5-5.1)
[2020-06-10] MEDS: HYDRALAZINE 25MG TABLET GT SCH ×3 (06:19→22:39)
[2020-06-10 07:23] LABS: ABG BASE EXCESS 2.9 mmol/L (-2.0-3.0); ABG HCO3 27.5 mmol/L (21.0-28.0); ABG OXYGEN SATURATION 91.7 % (95.0-99.0); ABG PCO2 42 mmHg (35-48)
[2020-06-10] MEDS: METOPROLOL TARTRATE 50 MG TAB PO SCH ×2 (09:05→22:38)
[2020-06-10] MEDS: ENOXAPARIN SODIUM 60 MG/0.6 ML SQ SCH (09:06)
[2020-06-10] MEDS: SENNOSIDES 8.6 MG TABLET PO SCH (09:07)
[2020-06-10] MEDS: DEXAMETHASONE SOD PHOSPHATE 4 MG/ML 1ML VIAL IV SCH (09:07)
[2020-06-10] MEDS: AMLODIPINE 5 MG TAB PO SCH (09:07)
[2020-06-10] MEDS: LANSOPRAZOLE 15 MG SOLU TAB GT SCH (09:08)
[2020-06-10] MEDS: INSULIN GLARGINE 100 UNITS/ML 10 ML VIAL SQ SCH (09:14)
[2020-06-10] MEDS: IRON SUCROSE COMPLEX 300 MG in 0.9% NACL 250ML 250 ML IV SCH (10:43)
[2020-06-10] MEDS ORDERED: FUROSEMIDE 40MG VIAL IV SCH (11:30)
[2020-06-10] MEDS: CEFEPIME HCL 2 GM VIAL IVP SCH (12:55)
[2020-06-10] MEDS: LINEZOLID 600 MG/ISO-OSM 300 ML IV SCH (12:56)
[2020-06-11] VITALS (84 sets, daily range): BP systolic 102–161; BP diastolic 47–84
[2020-06-11] MEDS: LABETALOL 20MG SYG IV SCH ×9 (00:50→23:45)
[2020-06-11] MEDS: INSULIN GLARGINE 100 UNITS/ML 10 ML VIAL SQ SCH ×3 (01:04→21:09)
[2020-06-11] MEDS: INSULIN HUMULIN R 100 UNIT/ML 3ML SQ SCH ×6 (01:06→23:41)
[2020-06-11] MEDS: LINEZOLID 600 MG/ISO-OSM 300 ML IV SCH ×3 (01:07→23:43)
[2020-06-11] MEDS: FISH OIL 1000 MG/CAP PO SCH ×2 (01:07→12:04)
[2020-06-11 03:27] LABS: ABG BASE EXCESS 3.3 mmol/L (-2.0-3.0); ABG HCO3 27.8 mmol/L (21.0-28.0); ABG OXYGEN SATURATION 92.7 % (95.0-99.0); ABG PCO2 42 mmHg (35-48)
[2020-06-11] MEDS: HYDRALAZINE 25MG TABLET GT SCH ×3 (05:03→21:08)
[2020-06-11] MEDS ORDERED: FENTANYL 2500MCG+NS 250ML 250 ML IV ONE (06:52)
[2020-06-11] MEDS: DEXAMETHASONE SOD PHOSPHATE 4 MG/ML 1ML VIAL IV SCH (07:58)
[2020-06-11] MEDS: METOPROLOL TARTRATE 50 MG TAB PO SCH ×2 (07:58→21:08)
[2020-06-11] MEDS: SENNOSIDES 8.6 MG TABLET PO SCH (07:58)
[2020-06-11] MEDS: ENOXAPARIN SODIUM 60 MG/0.6 ML SQ SCH (07:58)
[2020-06-11] MEDS: AMLODIPINE 5 MG TAB PO SCH (07:58)
[2020-06-11] MEDS: LANSOPRAZOLE 15 MG SOLU TAB GT SCH (08:14)
[2020-06-11] MEDS: MIDAZOLAM 100MG-0.9% NS 100ML 100 ML IV SCH (08:44)
[2020-06-11] MEDS: IRON SUCROSE COMPLEX 300 MG in 0.9% NACL 250ML 250 ML IV SCH (08:54)
[2020-06-11 10:24] LABS: BASOPHILS % (AUTO) 0.1 % (0.0-5.0); EOSINOPHILS % (AUTO) 0.8 % (0.0-8.0); HEMATOCRIT 27.3 % (42-54); LYMPHOCYTES % (AUTO) 3.5 % (21.0-51.0); MEAN CORPUSCULAR HEMOGLOBIN 29.5 pg (27.0-33.0); MEAN CORPUSCULAR HGB CONC 31.1 g/dL (32.0-36.0); MEAN CORPUSCULAR VOLUME 94.8 fL (79-99); MONOCYTES % (AUTO) 4.6 % (3.0-13.0); NEUTROPHILS % (AUTO) 87.2 % (40.0-77.0); NUCLEATED RED BLOOD CELLS 0.1 % (0.0-0.19); PLATELET COUNT (AUTO) 169 K/uL (130-400); RED BLOOD CELL COUNT(AUTO) 2.88 MIL/uL (4.50-6.20); RED CELL DISTRIBUTION WIDTH 13.9 % (11.0-15.5); WHITE BLOOD COUNT (AUTO) 15.9 K/uL (4.8-10.8)
[2020-06-11] MEDS: CEFEPIME HCL 2 GM VIAL IVP SCH (11:02)
[2020-06-11] MEDS ORDERED: FUROSEMIDE 40MG VIAL ONE (12:02)
[2020-06-11] MEDS ORDERED: FUROSEMIDE 40MG VIAL IV SCH (12:23)
[2020-06-12] VITALS (70 sets, daily range): BP systolic 86–166; BP diastolic 33–112
[2020-06-12] MEDS: MIDAZOLAM 100MG-0.9% NS 100ML 100 ML IV SCH ×2 (02:06→18:35)
[2020-06-12] MEDS: FISH OIL 1000 MG/CAP PO SCH ×2 (02:53→11:13)
[2020-06-12] MEDS: LABETALOL 20MG SYG IV SCH ×7 (02:53→20:08)
[2020-06-12 03:57] LABS: ABG BASE EXCESS 2.1 mmol/L (-2.0-3.0); ABG HCO3 25.1 mmol/L (21.0-28.0); ABG OXYGEN SATURATION 97.7 % (95.0-99.0); ABG PCO2 34 mmHg (35-48)
[2020-06-12 04:59] LABS: BASOPHILS % (AUTO) 0.2 % (0.0-5.0); EOSINOPHILS % (AUTO) 0.6 % (0.0-8.0); HEMATOCRIT 24.9 % (42-54); MEAN CORPUSCULAR HEMOGLOBIN 29.9 pg (27.0-33.0); MEAN CORPUSCULAR HGB CONC 31.3 g/dL (32.0-36.0); MEAN CORPUSCULAR VOLUME 95.4 fL (79-99); MONOCYTES % (AUTO) 5.9 % (3.0-13.0); NEUTROPHILS % (AUTO) 84.6 % (40.0-77.0); NUCLEATED RED BLOOD CELLS 0.2 % (0.0-0.19); PLATELET COUNT (AUTO) 183 K/uL (130-400); RED BLOOD CELL COUNT(AUTO) 2.61 MIL/uL (4.50-6.20); RED CELL DISTRIBUTION WIDTH 14.1 % (11.0-15.5); WHITE BLOOD COUNT (AUTO) 12.7 K/uL (4.8-10.8)
[2020-06-12] MEDS: INSULIN HUMULIN R 100 UNIT/ML 3ML SQ SCH ×4 (05:26→18:00)
[2020-06-12 05:32] LABS: ALBUMIN 2.1 g/dL (3.5-5.0); BILIRUBIN,TOTAL 0.4 mg/dL (0.2-1.0); CREATININE 2.8 mg/dL (0.5-1.5); POTASSIUM 5.1 mmol/L (3.5-5.1); TOTAL PROTEIN, SERUM 6.4 g/dL (6.0-8.3)
[2020-06-12] MEDS: HYDRALAZINE 25MG TABLET GT SCH ×3 (06:06→20:09)
[2020-06-12] MEDS ORDERED: FENTANYL 2500MCG+NS 250ML 250 ML IV ONE (08:36)
[2020-06-12] MEDS: ENOXAPARIN SODIUM 60 MG/0.6 ML SQ SCH (08:39)
[2020-06-12] MEDS: DEXAMETHASONE SOD PHOSPHATE 4 MG/ML 1ML VIAL IV SCH (08:39)
[2020-06-12] MEDS: AMLODIPINE 5 MG TAB PO SCH (08:40)
[2020-06-12] MEDS: SENNOSIDES 8.6 MG TABLET PO SCH (08:40)
[2020-06-12] MEDS: METOPROLOL TARTRATE 50 MG TAB PO SCH ×2 (08:40→20:09)
[2020-06-12] MEDS: INSULIN GLARGINE 100 UNITS/ML 10 ML VIAL SQ SCH ×2 (08:41→20:10)
[2020-06-12] MEDS: IRON SUCROSE COMPLEX 300 MG in 0.9% NACL 250ML 250 ML IV SCH (08:44)
[2020-06-12] MEDS: LANSOPRAZOLE 15 MG SOLU TAB GT SCH (09:34)
[2020-06-12] MEDS: CEFEPIME HCL 2 GM VIAL IVP SCH (11:12)
[2020-06-12] MEDS: LINEZOLID 600 MG/ISO-OSM 300 ML IV SCH (11:13)
[2020-06-12] MEDS: DEXMEDETOMIDINE HCL 400 MCG in 0.9%NACL 100ML 100 ML IV SCH (22:37)
[2020-06-13] VITALS (90 sets, daily range): BP systolic 82–177; BP diastolic 33–80
[2020-06-13] MEDS: LINEZOLID 600 MG/ISO-OSM 300 ML IV SCH ×2 (01:26→12:49)
[2020-06-13] MEDS: FISH OIL 1000 MG/CAP PO SCH ×2 (01:26→12:44)
[2020-06-13] MEDS: LABETALOL 20MG SYG IV SCH ×8 (03:00→21:18)
[2020-06-13 04:49] LABS: BASOPHILS % (AUTO) 0.1 % (0.0-5.0); EOSINOPHILS % (AUTO) 0.4 % (0.0-8.0); HEMATOCRIT 23.2 % (42-54); LYMPHOCYTES % (AUTO) 3.5 % (21.0-51.0); MEAN CORPUSCULAR HEMOGLOBIN 30.2 pg (27.0-33.0); MEAN CORPUSCULAR HGB CONC 30.6 g/dL (32.0-36.0); MEAN CORPUSCULAR VOLUME 98.7 fL (79-99); NEUTROPHILS % (AUTO) 87.2 % (40.0-77.0); NUCLEATED RED BLOOD CELLS 0.3 % (0.0-0.19); PLATELET COUNT (AUTO) 181 K/uL (130-400); RED BLOOD CELL COUNT(AUTO) 2.35 MIL/uL (4.50-6.20); RED CELL DISTRIBUTION WIDTH 14.1 % (11.0-15.5); WHITE BLOOD COUNT (AUTO) 13.8 K/uL (4.8-10.8)
[2020-06-13 05:01] LABS: CREATININE 2.7 mg/dL (0.5-1.5); MAGNESIUM 2.6 mg/dL (1.80-2.40); PHOSPHORUS 6.8 mg/dL (2.5-4.9); POTASSIUM 5.2 mmol/L (3.5-5.1)
[2020-06-13 05:29] LABS: % IRON SATURATION 76.8 % (30-44)
[2020-06-13] MEDS: HYDRALAZINE 25MG TABLET GT SCH ×3 (06:10→21:18)
[2020-06-13] MEDS: INSULIN HUMULIN R 100 UNIT/ML 3ML SQ SCH ×5 (06:10→17:08)
[2020-06-13] MEDS: LANSOPRAZOLE 15 MG SOLU TAB GT SCH (08:32)
[2020-06-13] MEDS: METOPROLOL TARTRATE 50 MG TAB PO SCH ×2 (08:32→21:18)
[2020-06-13] MEDS: AMLODIPINE 5 MG TAB PO SCH (08:32)
[2020-06-13] MEDS: SENNOSIDES 8.6 MG TABLET PO SCH (08:32)
[2020-06-13] MEDS: DEXAMETHASONE SOD PHOSPHATE 4 MG/ML 1ML VIAL IV SCH (08:33)
[2020-06-13] MEDS: INSULIN GLARGINE 100 UNITS/ML 10 ML VIAL SQ SCH (08:34)
[2020-06-13] MEDS: IRON SUCROSE COMPLEX 300 MG in 0.9% NACL 250ML 250 ML IV SCH (08:36)
[2020-06-13] MEDS: ENOXAPARIN SODIUM 60 MG/0.6 ML SQ SCH (08:42)
[2020-06-13] MEDS ORDERED: KAYEXALATE 15GM/60ML GT SCH (11:15)
[2020-06-13 12:09] LABS: HEMATOCRIT 24.8 % (42-54)
[2020-06-13] MEDS: POLYETHYLENE GLYCOL 3350 17 GM POWD.PACK GT SCH (12:43)
[2020-06-13] MEDS: CEFEPIME HCL 2 GM VIAL IVP SCH (12:44)
[2020-06-13] MEDS: LORAZEPAM 2 MG/ML 1 ML VIAL IVP PRN (17:07)
[2020-06-13] MEDS ORDERED: GLUCAGON 1MG KIT 1 MG ML ONE (17:54)
[2020-06-14] VITALS (56 sets, daily range): BP systolic 121–171; BP diastolic 46–97
[2020-06-14] MEDS: LINEZOLID 600 MG/ISO-OSM 300 ML IV SCH ×2 (00:45→12:45)
[2020-06-14] MEDS: LABETALOL 20MG SYG IV SCH ×7 (00:46→21:16)
[2020-06-14 03:58] LABS: ABG BASE EXCESS 2.3 mmol/L (-2.0-3.0); ABG HCO3 26.9 mmol/L (21.0-28.0); ABG OXYGEN SATURATION 97.4 % (95.0-99.0); ABG PCO2 42 mmHg (35-48)
[2020-06-14 05:07] LABS: BASOPHILS % (AUTO) 0.1 % (0.0-5.0); EOSINOPHILS % (AUTO) 0.3 % (0.0-8.0); HEMATOCRIT 24.1 % (42-54); LYMPHOCYTES % (AUTO) 4.2 % (21.0-51.0); MEAN CORPUSCULAR HGB CONC 30.7 g/dL (32.0-36.0); MEAN CORPUSCULAR VOLUME 97.6 fL (79-99); NEUTROPHILS % (AUTO) 87.2 % (40.0-77.0); NUCLEATED RED BLOOD CELLS 0.1 % (0.0-0.19); PLATELET COUNT (AUTO) 214 K/uL (130-400); RED BLOOD CELL COUNT(AUTO) 2.47 MIL/uL (4.50-6.20); RED CELL DISTRIBUTION WIDTH 14.1 % (11.0-15.5); WHITE BLOOD COUNT (AUTO) 14.8 K/uL (4.8-10.8)
[2020-06-14 05:31] LABS: POTASSIUM 4.3 mmol/L (3.5-5.1)
[2020-06-14 05:32] LABS: ALBUMIN 2.1 g/dL (3.5-5.0); BILIRUBIN,TOTAL 0.5 mg/dL (0.2-1.0); CREATININE 2.3 mg/dL (0.5-1.5); MAGNESIUM 2.7 mg/dL (1.80-2.40); TOTAL PROTEIN, SERUM 6.4 g/dL (6.0-8.3)
[2020-06-14] MEDS: INSULIN HUMULIN R 100 UNIT/ML 3ML SQ SCH ×5 (06:00→18:00)
[2020-06-14] MEDS: HYDRALAZINE 25MG TABLET GT SCH ×3 (06:59→22:00)
[2020-06-14] MEDS: INSULIN GLARGINE 100 UNITS/ML 10 ML VIAL SQ SCH (07:41)
[2020-06-14] MEDS: POLYETHYLENE GLYCOL 3350 17 GM POWD.PACK GT SCH (09:24)
[2020-06-14] MEDS: METOPROLOL TARTRATE 50 MG TAB PO SCH ×2 (09:24→21:00)
[2020-06-14] MEDS: SENNOSIDES 8.6 MG TABLET PO SCH (09:24)
[2020-06-14] MEDS: AMLODIPINE 5 MG TAB PO SCH (09:25)
[2020-06-14] MEDS: LANSOPRAZOLE 15 MG SOLU TAB GT SCH (09:25)
[2020-06-14] MEDS: IRON SUCROSE COMPLEX 300 MG in 0.9% NACL 250ML 250 ML IV SCH (09:26)
[2020-06-14] MEDS ORDERED: DEXTROSE 50%-WATER 50 ML DISP.SYRIN IV ONE (11:37)
[2020-06-14] MEDS: FISH OIL 1000 MG/CAP PO SCH (11:46)
[2020-06-14] MEDS: ACETYLCYSTEINE 10% 100MG/ML 4ML VIAL PO SCH ×3 (12:00→16:36)
[2020-06-14] MEDS ORDERED: DEXTROSE 10%-WATER 1,000 ML IV SCH (13:15)
[2020-06-14] MEDS: BALSAM PERU/CASTOR OIL 60 GM TUBE TP SCH ×2 (15:24→21:00)
[2020-06-14] MEDS: ALBUTEROL INHALER 90MCG/INH IH SCH (18:07)
[2020-06-15] VITALS (41 sets, daily range): BP systolic 113–174; BP diastolic 54–89
[2020-06-15] MEDS: FISH OIL 1000 MG/CAP PO SCH ×2 (01:00→14:04)
[2020-06-15] MEDS: LABETALOL 20MG SYG IV SCH ×8 (01:18→20:31)
[2020-06-15] MEDS: LINEZOLID 600 MG/ISO-OSM 300 ML IV SCH (01:48)
[2020-06-15 03:55] LABS: ABG BASE EXCESS 3.3 mmol/L (-2.0-3.0); ABG HCO3 26.7 mmol/L (21.0-28.0); ABG OXYGEN SATURATION 90.2 % (95.0-99.0); ABG PCO2 37 mmHg (35-48)
[2020-06-15 04:52] LABS: BASOPHILS % (AUTO) 0.2 % (0.0-5.0); EOSINOPHILS % (AUTO) 0.4 % (0.0-8.0); HEMATOCRIT 24.3 % (42-54); LYMPHOCYTES % (AUTO) 5.7 % (21.0-51.0); MEAN CORPUSCULAR HEMOGLOBIN 29.7 pg (27.0-33.0); MEAN CORPUSCULAR HGB CONC 30.5 g/dL (32.0-36.0); MEAN CORPUSCULAR VOLUME 97.6 fL (79-99); NEUTROPHILS % (AUTO) 84.1 % (40.0-77.0); NUCLEATED RED BLOOD CELLS 0.2 % (0.0-0.19); PLATELET COUNT (AUTO) 233 K/uL (130-400); RED BLOOD CELL COUNT(AUTO) 2.49 MIL/uL (4.50-6.20); RED CELL DISTRIBUTION WIDTH 14.3 % (11.0-15.5)
[2020-06-15 05:11] LABS: POTASSIUM 3.5 mmol/L (3.5-5.1)
[2020-06-15] MEDS: ACETYLCYSTEINE 10% 100MG/ML 4ML VIAL PO SCH ×3 (06:00→18:00)
[2020-06-15] MEDS: HYDRALAZINE 25MG TABLET GT SCH ×3 (06:00→21:21)
[2020-06-15] MEDS: INSULIN HUMULIN R 100 UNIT/ML 3ML SQ SCH ×7 (06:00→20:51)
[2020-06-15] MEDS: METOPROLOL TARTRATE 50 MG TAB PO SCH ×2 (07:25→20:37)
[2020-06-15] MEDS: LANSOPRAZOLE 15 MG SOLU TAB GT SCH (07:25)
[2020-06-15] MEDS: POLYETHYLENE GLYCOL 3350 17 GM POWD.PACK GT SCH (07:25)
[2020-06-15] MEDS: SENNOSIDES 8.6 MG TABLET PO SCH (07:26)
[2020-06-15] MEDS: AMLODIPINE 5 MG TAB PO SCH (07:26)
[2020-06-15] MEDS: IRON SUCROSE COMPLEX 300 MG in 0.9% NACL 250ML 250 ML IV SCH (08:57)
[2020-06-15] MEDS: DEXAMETHASONE SOD PHOSPHATE 4 MG/ML 1ML VIAL IVP SCH (08:58)
[2020-06-15] MEDS: BALSAM PERU/CASTOR OIL 60 GM TUBE TP SCH ×3 (08:58→20:37)
[2020-06-15] MEDS: ALBUTEROL INHALER 90MCG/INH IH SCH ×3 (12:24→18:00)
[2020-06-16] VITALS: BP 141/72
[2020-06-16] MEDS: ALBUTEROL INHALER 90MCG/INH IH SCH ×5 (00:12→23:28)
[2020-06-16] MEDS: ACETYLCYSTEINE 10% 100MG/ML 4ML VIAL PO SCH ×3 (00:38→12:34)
[2020-06-16] MEDS: FISH OIL 1000 MG/CAP PO SCH ×2 (00:38→12:34)
[2020-06-16] MEDS: BALSAM PERU/CASTOR OIL 60 GM TUBE TP SCH ×3 (02:14→20:53)
[2020-06-16] MEDS: LABETALOL 20MG SYG IV SCH ×5 (03:00→12:00)
[2020-06-16 04:00] VITALS: BP 135/71
[2020-06-16 05:14] LABS: BASOPHILS % (AUTO) 0.2 % (0.0-5.0); EOSINOPHILS % (AUTO) 0.7 % (0.0-8.0); HEMATOCRIT 23.1 % (42-54); LYMPHOCYTES % (AUTO) 6.3 % (21.0-51.0); MEAN CORPUSCULAR HEMOGLOBIN 30.7 pg (27.0-33.0); MEAN CORPUSCULAR HGB CONC 30.3 g/dL (32.0-36.0); MEAN CORPUSCULAR VOLUME 101.3 fL (79-99); MONOCYTES % (AUTO) 7.1 % (3.0-13.0); NEUTROPHILS % (AUTO) 84.6 % (40.0-77.0); NUCLEATED RED BLOOD CELLS 0.4 % (0.0-0.19); PLATELET COUNT (AUTO) 305 K/uL (130-400); RED BLOOD CELL COUNT(AUTO) 2.28 MIL/uL (4.50-6.20); RED CELL DISTRIBUTION WIDTH 15.3 % (11.0-15.5); WHITE BLOOD COUNT (AUTO) 12.2 K/uL (4.8-10.8)
[2020-06-16 05:34] LABS: CREATININE 2.1 mg/dL (0.5-1.5)
[2020-06-16] MEDS: HYDRALAZINE 25MG TABLET GT SCH ×3 (05:44→21:10)
[2020-06-16] MEDS: INSULIN HUMULIN R 100 UNIT/ML 3ML SQ SCH ×5 (06:34→20:53)
[2020-06-16] MEDS: LANSOPRAZOLE 15 MG SOLU TAB GT SCH (09:00)
[2020-06-16 09:27] VITALS: BP 130/76
[2020-06-16] MEDS: IRON SUCROSE COMPLEX 300 MG in 0.9% NACL 250ML 250 ML IV SCH (10:13)
[2020-06-16] MEDS: AMLODIPINE 5 MG TAB PO SCH (10:14)
[2020-06-16] MEDS: DEXAMETHASONE SOD PHOSPHATE 4 MG/ML 1ML VIAL IVP SCH (10:14)
[2020-06-16] MEDS: METOPROLOL TARTRATE 50 MG TAB PO SCH ×2 (10:14→20:56)
[2020-06-16] MEDS: POLYETHYLENE GLYCOL 3350 17 GM POWD.PACK GT SCH (10:14)
[2020-06-16] MEDS: SENNOSIDES 8.6 MG TABLET PO SCH (10:14)
[2020-06-16] MEDS ORDERED: DEXTROSE 5%-WATER 1,000 ML IV SCH (12:39)
[2020-06-16 13:14] VITALS: BP 136/78
[2020-06-16 13:44] LABS: HEMATOCRIT 22.2 % (42-54)
[2020-06-16 14:02] LABS: % IRON SATURATION 110.5 % (30-44)
[2020-06-16] MEDS ORDERED: 0.9% NACL 250ML 250 ML IV ONE (14:45)
[2020-06-16] MEDS ORDERED: COMPOUND IV MISC 1 EACH IVSOLN MISC PRN (15:00)
[2020-06-16 18:37] VITALS: BP 140/74
[2020-06-16 20:00] VITALS: BP 149/77
[2020-06-17 00:01] VITALS: BP 149/66
[2020-06-17 01:31] LABS: BASOPHILS % (AUTO) 0.2 % (0.0-5.0); EOSINOPHILS % (AUTO) 0.5 % (0.0-8.0); LYMPHOCYTES % (AUTO) 9.7 % (21.0-51.0); MEAN CORPUSCULAR HEMOGLOBIN 30.3 pg (27.0-33.0); MEAN CORPUSCULAR HGB CONC 31.7 g/dL (32.0-36.0); MEAN CORPUSCULAR VOLUME 95.4 fL (79-99); MONOCYTES % (AUTO) 7.6 % (3.0-13.0); NEUTROPHILS % (AUTO) 80.3 % (40.0-77.0); NUCLEATED RED BLOOD CELLS 1.9 % (0.0-0.19); PLATELET COUNT (AUTO) 289 K/uL (130-400); RED BLOOD CELL COUNT(AUTO) 3.04 MIL/uL (4.50-6.20); RED CELL DISTRIBUTION WIDTH 18.3 % (11.0-15.5); WHITE BLOOD COUNT (AUTO) 12.6 K/uL (4.8-10.8)
[2020-06-17] MEDS: FISH OIL 1000 MG/CAP PO SCH (01:45)
[2020-06-17 01:46] LABS: ALBUMIN 2.1 g/dL (3.5-5.0); BILIRUBIN,TOTAL 0.5 mg/dL (0.2-1.0); CREATININE 2.5 mg/dL (0.5-1.5); POTASSIUM 4.4 mmol/L (3.5-5.1); TOTAL PROTEIN, SERUM 6.1 g/dL (6.0-8.3)
[2020-06-17 04:21] VITALS: BP 146/73
== END 2020-06-17 04:28 | DRG 870 ==
LOC: EDH 08:05 → EDHIP 09:48 → 2BH 06-01 04:44 → 4AH 06-15 18:18
PROVIDERS: ADMIT Hospitalist; ATTEND Hospitalist
PROC: 5A09357 Assistance with Respiratory Ventilation, Less than 24 Consecutive Hours, Continuous Positive Airway Pressure (ICD-10-PCS; 2020-05-29)
PROC: 5A1955Z Respiratory Ventilation, Greater than 96 Consecutive Hours (ICD-10-PCS; principal; 2020-05-30)
PROC: XW13325 Transfusion of Convalescent Plasma (Nonautologous) into Peripheral Vein, Percutaneous Approach, New Technology Group 5 (ICD-10-PCS; 2020-05-30)
PROC: 0BH17EZ Insertion of Endotracheal Airway into Trachea, Via Natural or Artificial Opening (ICD-10-PCS; 2020-05-30)
PROC: 5A09357 Assistance with Respiratory Ventilation, Less than 24 Consecutive Hours, Continuous Positive Airway Pressure (ICD-10-PCS; 2020-05-30)
PROC: 03HY32Z Insertion of Monitoring Device into Upper Artery, Percutaneous Approach (ICD-10-PCS; 2020-05-30)
PROC: 02HV33Z Insertion of Infusion Device into Superior Vena Cava, Percutaneous Approach (ICD-10-PCS; 2020-05-30)
PROC: B548ZZA Ultrasonography of Superior Vena Cava, Guidance (ICD-10-PCS; 2020-05-30)
PROC: 5A1D70Z Performance of Urinary Filtration, Intermittent, Less than 6 Hours Per Day (ICD-10-PCS; 2020-06-04)
PROC: 5A1D70Z Performance of Urinary Filtration, Intermittent, Less than 6 Hours Per Day (ICD-10-PCS; 2020-06-05)
PROC: 5A1D70Z Performance of Urinary Filtration, Intermittent, Less than 6 Hours Per Day (ICD-10-PCS; 2020-06-06)
PROC: 30233N1 Transfusion of Nonautologous Red Blood Cells into Peripheral Vein, Percutaneous Approach (ICD-10-PCS; 2020-06-16)
DX: A41.89 Other specified sepsis (principal); U07.1 COVID-19; E11.10 Type 2 diabetes mellitus with ketoacidosis without coma; N17.0 Acute kidney failure with tubular necrosis; J80 Acute respiratory distress syndrome; R65.21 Severe sepsis with septic shock; E43 Unspecified severe protein-calorie malnutrition; J12.82 Pneumonia due to coronavirus disease 2019; E87.1 Hypo-osmolality and hyponatremia; E87.4 Mixed disorder of acid-base balance; D62 Acute posthemorrhagic anemia; E87.0 Hyperosmolality and hypernatremia; G93.40 Encephalopathy, unspecified; K92.2 Gastrointestinal hemorrhage, unspecified; I12.9 Hypertensive chronic kidney disease with stage 1 through stage 4 chronic kidney disease, or unspecified chronic kidney disease; E86.1 Hypovolemia; E66.9 Obesity, unspecified; E11.22 Type 2 diabetes mellitus with diabetic chronic kidney disease; E11.51 Type 2 diabetes mellitus with diabetic peripheral angiopathy without gangrene; E78.1 Pure hyperglyceridemia; Z96.651 Presence of right artificial knee joint; E87.70 Fluid overload, unspecified; E11.21 Type 2 diabetes mellitus with diabetic nephropathy; E87.8 Other disorders of electrolyte and fluid balance, not elsewhere classified; N18.9 Chronic kidney disease, unspecified; L89.152 Pressure ulcer of sacral region, stage 2; R13.12 Dysphagia, oropharyngeal phase; Z74.01 Bed confinement status; Z79.4 Long term (current) use of insulin; Z82.49 Family history of ischemic heart disease and other diseases of the circulatory system; Z83.3 Family history of diabetes mellitus; Z79.899 Other long term (current) drug therapy; Z68.29 Body mass index [BMI] 29.0-29.9, adult
CPT/HCPCS: 31500; 36415; 36430; 36600; 71045; 76770; 80048; 80053; 80061; 80069; 82010; 82040; 82270; 82435; 82565; 82728; 82803; 82947; 82948; 83036; 83540; 83550; 83605; 83615; 83735; 83880; 84100; 84132; 84145; 84295; 84478; 84484; 84520; 85014; 85018; 85025; 85045; 85378; 85384; 85610; 85651; 85730; 86140; 86701; 86704; 86706; 86850; 86900; 86901; 86923; 86927; 87040; 87071; 87088; 87205; 87340; 87390; 87426; 87520; 87641; 90935; 92610; 93005; 94002; 94003; 94660; 99291; C9113; G0378; J0456; J0692; J0696; J0885; J1100; J1610; J1644; J1650; J1756; J1815; J1940; J2020; J2060; J2405; J2704; J3010; J3370; J3490; J7040; J7050; J7060; J7070; J7608; P9016; P9047

== ENCOUNTER → 2020-08-24 | Outpatient (CLI) | payer OTHER | END | disposition home or self-care (01) | LOC: RAH 11:07 | PROVIDERS: ATTEND Internal Medicine | DX: I67.82 Cerebral ischemia (principal); G81.92 Hemiplegia, unspecified affecting left dominant side | CPT/HCPCS: 70551 ==

== ENCOUNTER → 2020-11-27 | Outpatient (CLI) | payer OTHER | END | disposition home or self-care (01) | LOC: SHCH 15:50 | PROVIDERS: ATTEND Internal Medicine Cardiovascular Disease | DX: I10 Essential (primary) hypertension (principal) | CPT/HCPCS: 93306; 93356 ==

== ENCOUNTER → 2021-07-12 | Outpatient (CLI) | payer OTHER | END | disposition home or self-care (01) | LOC: RAH 12:56 | PROVIDERS: ATTEND Internal Medicine Critical Care Medicine | DX: J84.10 Pulmonary fibrosis, unspecified (principal); I25.10 Atherosclerotic heart disease of native coronary artery without angina pectoris; K76.0 Fatty (change of) liver, not elsewhere classified; M47.815 Spondylosis without myelopathy or radiculopathy, thoracolumbar region; R91.8 Other nonspecific abnormal finding of lung field; Z86.16 Personal history of COVID-19 | CPT/HCPCS: 71250 ==

== ENCOUNTER → 2021-11-30 | Outpatient (CLI) | payer OTHER | END | disposition home or self-care (01) | LOC: RAH 10:44 | PROVIDERS: ATTEND Pain Medicine Interventional Pain Medicine | DX: M47.812 Spondylosis without myelopathy or radiculopathy, cervical region (principal); M47.816 Spondylosis without myelopathy or radiculopathy, lumbar region | CPT/HCPCS: 72040; 72100 ==

== ENCOUNTER → 2021-12-18 | Outpatient (CLI) | payer OTHER | END | disposition home or self-care (01) | LOC: RAH 09:39 | PROVIDERS: ATTEND Pain Medicine Interventional Pain Medicine | DX: M54.6 Pain in thoracic spine (principal) | CPT/HCPCS: 72070 ==

== ENCOUNTER → 2022-04-01 | Outpatient (CLI) | payer OTHER | END | disposition home or self-care (01) | LOC: RAH 10:19 | PROVIDERS: ATTEND Internal Medicine | DX: M19.071 Primary osteoarthritis, right ankle and foot (principal); M79.674 Pain in right toe(s) | CPT/HCPCS: 73620 ==

== ENCOUNTER → 2022-05-15 | Outpatient (CLI) | payer OTHER | END | disposition home or self-care (01) | LOC: RAH 09:39 | PROVIDERS: ATTEND Internal Medicine | DX: M19.011 Primary osteoarthritis, right shoulder (principal) | CPT/HCPCS: 73030 ==

== ENCOUNTER → 2022-06-20 | Outpatient (CLI) | payer OTHER | END | disposition home or self-care (01) | LOC: RAH 08:22 | PROVIDERS: ATTEND Internal Medicine | DX: S42.141A Displaced fracture of glenoid cavity of scapula, right shoulder, initial encounter for closed fracture (principal); M25.511 Pain in right shoulder; X58.XXXA Exposure to other specified factors, initial encounter; Y93.89 Activity, other specified; Y92.89 Other specified places as the place of occurrence of the external cause; Y99.8 Other external cause status | CPT/HCPCS: 73221 ==

== ENCOUNTER 2022-11-09 05:38 | Emergency (ER) | payer OTHER ==
[~2022-11-09] VITALS: Ht 180.3 cm; Wt 98.9 kg
[~2022-11-09 05:38] MED LIST changes: +ENAL-91 PO; -ENAL20TA18 PO
[2022-11-09 05:45] VITALS: RESP 17
[2022-11-09] MEDS ORDERED: NITROGLYCERIN 1GM OINT 1 INCH/1GM TD ONE (06:00)
[2022-11-09] MEDS ORDERED: ASPIRIN 81MG CHEW TAB PO ONE (06:00)
[2022-11-09 06:05] LABS: BASOPHILS % (AUTO) 0.7 % (0.0-5.0); EOSINOPHILS % (AUTO) 6.6 % (0.0-8.0); HEMATOCRIT 35.2 % (42-54); LYMPHOCYTES % (AUTO) 23.2 % (21.0-51.0); MEAN CORPUSCULAR HEMOGLOBIN 29.1 pg (27.0-33.0); MEAN CORPUSCULAR HGB CONC 31.5 g/dL (32.0-36.0); MEAN CORPUSCULAR VOLUME 92.4 fL (79-99); MONOCYTES % (AUTO) 10.4 % (3.0-13.0); NEUTROPHILS % (AUTO) 58.8 % (40.0-77.0); PLATELET COUNT (AUTO) 199 K/uL (130-400); RED BLOOD CELL COUNT(AUTO) 3.81 MIL/uL (4.50-6.20); RED CELL DISTRIBUTION WIDTH 14.1 % (11.0-15.5); WHITE BLOOD COUNT (AUTO) 7.1 K/uL (4.8-10.8)
[2022-11-09 06:22] LABS: ALBUMIN 3.3 g/dL (3.5-5.0); CREATININE 1.9 mg/dL (0.5-1.5); MAGNESIUM 2.2 mg/dL (1.80-2.40); POTASSIUM 3.9 mmol/L (3.5-5.1); TOTAL PROTEIN, SERUM 6.8 g/dL (6.0-8.3)
[2022-11-09 06:23] LABS: B-TYPE NATRIURETIC PEPTIDE 94 pg/mL (0-100)
[2022-11-09 06:31] LABS: INR 0.93 (0.85-1.15); PROTHROMBIN TIME 10.1 SEC (9.6-11.6)
[2022-11-09 06:33] LABS: PARTIAL THROMBOPLASTIN TIME 29.1 SEC (26.3-35.5)
[2022-11-09] MEDS ORDERED: ONDANSETRON 4MG INJ IVP ONE (07:30)
[2022-11-09] MEDS ORDERED: MORPHINE 2 MG SYG IM ONE (07:30)
[2022-11-09 10:43] VITALS: BP 131/51; PULSE 37
== END 2022-11-09 12:55 | disposition home or self-care (01) ==
LOC: EDH 05:38
DX: R07.9 Chest pain, unspecified (principal); I11.0 Hypertensive heart disease with heart failure; I50.9 Heart failure, unspecified; E11.9 Type 2 diabetes mellitus without complications; E78.5 Hyperlipidemia, unspecified; Z79.899 Other long term (current) drug therapy; Z90.49 Acquired absence of other specified parts of digestive tract
CPT/HCPCS: 99285; 96374; 71045; 83735; 84484 ×2; 80053; 83880; 85025; 85610; 85730; 36415; 96372; 93005 ×2; J2270; J2405

== ENCOUNTER → 2023-01-08 | Outpatient (CLI) | payer OTHER | END | disposition home or self-care (01) | LOC: RAH 11:20 | PROVIDERS: ATTEND Internal Medicine | DX: M47.817 Spondylosis without myelopathy or radiculopathy, lumbosacral region (principal); M48.07 Spinal stenosis, lumbosacral region; M47.814 Spondylosis without myelopathy or radiculopathy, thoracic region; Z90.49 Acquired absence of other specified parts of digestive tract | CPT/HCPCS: 71101; 72100 ==

== ENCOUNTER → 2023-01-20 | Outpatient (CLI) | payer OTHER | END | disposition home or self-care (01) | LOC: RAH 09:45 | PROVIDERS: ATTEND Internal Medicine | DX: N28.1 Cyst of kidney, acquired (principal); N18.32 Chronic kidney disease, stage 3b; N40.1 Benign prostatic hyperplasia with lower urinary tract symptoms | CPT/HCPCS: 76770 ==

== ENCOUNTER → 2023-03-17 | Outpatient (CLI) | payer OTHER | END | disposition home or self-care (01) | LOC: RAH 13:49 | PROVIDERS: ATTEND Internal Medicine Critical Care Medicine | DX: J84.89 Other specified interstitial pulmonary diseases (principal); I25.10 Atherosclerotic heart disease of native coronary artery without angina pectoris; M47.815 Spondylosis without myelopathy or radiculopathy, thoracolumbar region; N28.1 Cyst of kidney, acquired; N26.1 Atrophy of kidney (terminal); J98.4 Other disorders of lung; R06.02 Shortness of breath | CPT/HCPCS: 71250 ==

== ENCOUNTER → 2023-04-19 | Outpatient (CLI) | payer OTHER | END | disposition home or self-care (01) | LOC: SHCH 07:41 | PROVIDERS: ATTEND Internal Medicine Cardiovascular Disease | DX: I08.3 Combined rheumatic disorders of mitral, aortic and tricuspid valves (principal); I11.9 Hypertensive heart disease without heart failure | CPT/HCPCS: 93306 ==

== ENCOUNTER 2023-05-12 05:29 | Inpatient (IN) | payer OTHER ==
[~2023-05-12] VITALS: Ht 180.3 cm; Wt 96.1 kg
[2023-05-12 06:20] LABS: BASOPHILS # (AUTO) 0.03 K/uL (0.00-0.20); BASOPHILS % (AUTO) 0.4 % (0.0-5.0); EOSINOPHILS # (AUTO) 0.37 K/uL (0.00-0.70); EOSINOPHILS % (AUTO) 4.5 % (0.0-8.0); HEMATOCRIT 27.1 % (42-54); IMMATURE GRANULOCYTE ABSOLUTE 0.04 K/uL (0-1); LYMPHOCYTES # (AUTO) 1.2 K/uL (1.0-4.8); LYMPHOCYTES % (AUTO) 15.2 % (21.0-51.0); MEAN CORPUSCULAR HGB CONC 29.9 g/dL (32.0-36.0); MEAN CORPUSCULAR VOLUME 87.1 fL (79-99); MONOCYTES # (AUTO) 1.2 K/uL (0.1-1.0); MONOCYTES % (AUTO) 14.5 % (3.0-13.0); NEUTROPHILS # (AUTO) 5.3 K/uL (1.8-7.7); NEUTROPHILS % (AUTO) 64.9 % (40.0-77.0); PLATELET COUNT (AUTO) 224 K/uL (130-400); RED BLOOD CELL COUNT(AUTO) 3.11 MIL/uL (4.50-6.20); WHITE BLOOD COUNT (AUTO) 8.2 K/uL (4.8-10.8)
[2023-05-12 06:22] VITALS: PULSE 63; RESP 18
[2023-05-12 06:28] LABS: CREATININE 2.2 mg/dL (0.5-1.5); POTASSIUM 4.3 mmol/L (3.5-5.1)
[2023-05-12] MEDS ORDERED: ALBUTEROL 0.083% 2.5 MG/3 ML INH IH ONE ×2 (06:30)
[2023-05-12] MEDS ORDERED: MORPHINE 2 MG SYG IVP ONE (06:30)
[2023-05-12] MEDS ORDERED: FUROSEMIDE 40MG VIAL IV ONE (06:30)
[2023-05-12 06:40] LABS: SARS-CoV-2, RNA, NAAT NEGATIVE SARS CoV-2 (NEGATIVE)
[2023-05-12 06:41] LABS: MAGNESIUM 2.3 mg/dL (1.80-2.40); THYROID STIMULATING HORMONE 3.88 uIU/mL (0.36-3.74)
[2023-05-12 06:45] LABS: INFLUENZA TYPE A Negative For Type A (NEGATIVE); INFLUENZA TYPE B Negative For Type B (NEGATIVE)
[2023-05-12] MEDS ORDERED: ASPIRIN 325MG TAB PO ONE (07:00)
[2023-05-12] MEDS ORDERED: NITROGLYCERIN 1GM OINT 1 INCH/1GM TD ONE (07:00)
[2023-05-12] MEDS ORDERED: CEFTRIAXONE 2GM VIAL IVPB ONE (07:00)
[2023-05-12] MEDS ORDERED: OSELTAMIVIR PHOSPHATE 75 MG CAP PO ONE (07:00)
[2023-05-12] MEDS ORDERED: ENOXAPARIN SODIUM 40 MG/0.4 ML SYRINGE SQ ONE (07:00)
[2023-05-12] MEDS ORDERED: ONDANSETRON 4MG INJ IVP ONE (07:00)
[2023-05-12] MEDS: AZITHROMYCIN 500MG+NS 250ML 250 ML IVPB SCH ×2 (07:09→09:34)
[2023-05-12 07:46] LABS: APPEARANCE,URINE CLEAR (CLEAR); BILIRUBIN,URINE NEGATIVE (NEGATIVE); COLOR,URINE LIGHT-YELLOW (YELLOW); GLUCOSE, URINE (UA) 200 mg/dL (NEGATIVE); KETONES,URINE NEGATIVE (NEGATIVE); LEUKOCYTE ESTERASE ,URINE 250 Leu/uL (NEGATIVE); NITRATE,URINE NEGATIVE (NEGATIVE); OCCULT BLOOD,URINE SMALL (NEGATIVE); PH,URINE 5.5 (5.0-8.0); PROTEIN,URINE 100 mg/dL (NEGATIVE); UROBILINOGEN,URINE 0.2 mg/dL (0.2-1.0)
[2023-05-12 07:52] LABS: ADD UA MICROSCOPIC YES
[2023-05-12 08:05] LABS: BACTERIA,URINE FEW /HPF (None Seen); MUCUS,URINE RARE LPF (None Seen); RENAL EPITHELIAL CELLS,URINE RARE /HPF (None Seen); SQUAMOUS EPITHELIAL CELL,UR RARE /HPF (0-2); WBC,URINE 26-50 /HPF (0-1)
[2023-05-12] MEDS ORDERED: SODIUM CHLORIDE 3% FOR INHALATION 4 ML/AMP VIAL.NEB IH ONE ×2 (10:09→19:37)
[2023-05-12 10:25] LABS: ABG BASE EXCESS -7.1 mmol/L (-2.0-3.0); ABG HCO3 18.8 mmol/L (21.0-28.0); ABG OXYGEN SATURATION 94.2 % (95.0-99.0); ABG PCO2 40 mmHg (35-48); ABG PH 7.292 (7.35-7.450); CARBON MONOXIDE 1.5; DEVICE COMMENT RR RA; HHb 5.7; PO2, ARTERIAL BG 76.1 mmHg (83.0-108.0)
[2023-05-12] MEDS ORDERED: ONDANSETRON 4MG INJ IVP PRN (11:00)
[2023-05-12] MEDS ORDERED: ASPI-1114 PO (11:25)
[2023-05-12] MEDS ORDERED: CETI10TA57 PO (11:25)
[2023-05-12] MEDS ORDERED: ATOR40TA71 PO (11:25)
[2023-05-12] MEDS ORDERED: FURO20TA4 PO (11:25)
[2023-05-12] MEDS ORDERED: GLIP10TA9 PO (11:25)
[2023-05-12] MEDS ORDERED: EMPA25TA PO (11:25)
[2023-05-12 11:36] VITALS: PULSE 66; RESP 18
[2023-05-12] MEDS: IPRATROPIUM/ALBUTEROL SULFATE 3 ML SOLUTION IH SCH ×2 (11:36→20:03)
[2023-05-12 11:37] VITALS: PULSE 66; RESP 18; O2SAT 97
[2023-05-12] MEDS: INSULIN HUMULIN R 100 UNIT/ML 3ML SQ SCH ×3 (13:25→20:32)
[2023-05-12 15:11] LABS: CREATININE,URINE RANDOM 61 mg/dL (30-135); SODIUM,URINE RANDOM 92 mmol/l (40-220)
[2023-05-12 19:45] VITALS: PULSE 65; PULSE 69; RESP 18; O2SAT 96
[2023-05-12] MEDS: FAMOTIDINE 20MG VIAL IV SCH (19:47)
[2023-05-12] MEDS: ACETAMINOPHEN 325 MG TAB PO PRN (19:59)
[2023-05-13] VITALS (11 sets, daily range): BP systolic 139–158; BP diastolic 56–66; PULSE 55–93; RESP 17–20; O2SAT 96–98
[2023-05-13] MEDS: IPRATROPIUM/ALBUTEROL SULFATE 3 ML SOLUTION IH SCH ×5 (01:34→23:05)
[2023-05-13] MEDS ORDERED: MORPHINE 2 MG SYG IVP PRN (02:30)
[2023-05-13] MEDS ORDERED: FUROSEMIDE 20MG VIAL IV ONE (06:00)
[2023-05-13] MEDS: INSULIN HUMULIN R 100 UNIT/ML 3ML SQ SCH ×4 (07:30→22:50)
[2023-05-13 07:35] LABS: HEMATOCRIT 26.2 % (42-54); MEAN CORPUSCULAR HEMOGLOBIN 26.3 pg (27.0-33.0); MEAN CORPUSCULAR HGB CONC 29.8 g/dL (32.0-36.0); MEAN CORPUSCULAR VOLUME 88.2 fL (79-99); RED BLOOD CELL COUNT(AUTO) 2.97 MIL/uL (4.50-6.20)
[2023-05-13] MEDS ORDERED: LIDOCAINE HCL 2% JELLY 5 ML TP SCH (08:00)
[2023-05-13 08:49] LABS: ALBUMIN 2.9 g/dL (3.5-5.0); BILIRUBIN,TOTAL 0.3 mg/dL (0.2-1.0); CREATININE 2.1 mg/dL (0.5-1.5); POTASSIUM 3.8 mmol/L (3.5-5.1); TOTAL PROTEIN, SERUM 6.7 g/dL (6.0-8.3)
[2023-05-13] MEDS: FAMOTIDINE 20MG VIAL IV SCH ×2 (08:49→22:48)
[2023-05-13] MEDS: CEFTRIAXONE 1G VIAL IVPB SCH (09:02)
[2023-05-13] MEDS: ACETAMINOPHEN 325 MG TAB PO PRN (09:03)
[2023-05-13] MEDS: AZITHROMYCIN 500MG+NS 250ML 250 ML IVPB SCH (09:04)
[2023-05-13] MEDS ORDERED: ALLOPURINOL 100 MG TABLET PO SCH (21:00)
[2023-05-13] MEDS ORDERED: NON-FORMULARY MEDICATION 1 EACH (Hydralazine HCl 100 MG) PO SCH (21:00)
[2023-05-13] MEDS ORDERED: ENALAPRIL MALEATE 10 MG TABLET PO SCH (21:00)
[2023-05-13] MEDS ORDERED: ATORVASTATIN 40 MG TABLET PO SCH (21:00)
[2023-05-13] MEDS ORDERED: TAMSULOSIN HCL 0.4 MG CAP.ER.24H PO SCH (21:00)
[2023-05-13] MEDS ORDERED: AMLODIPINE 5 MG TAB PO SCH (21:00)
[2023-05-13] MEDS ORDERED: HYDRALAZINE 25MG TABLET PO SCH (21:00)
[2023-05-13] MEDS ORDERED: NON-FORMULARY MEDICATION 1 EACH (Enalapril Maleate 20 MG) PO SCH (21:00)
[2023-05-13] MEDS: FUROSEMIDE 20 MG TABLET PO SCH (22:48)
[2023-05-14] VITALS (8 sets, daily range): BP systolic 131–158; BP diastolic 55–67; PULSE 73–90; RESP 16–20; O2SAT 96–99
[2023-05-14] MEDS: INSULIN HUMULIN R 100 UNIT/ML 3ML SQ SCH (05:48)
[2023-05-14] MEDS: AZITHROMYCIN 500MG+NS 250ML 250 ML IVPB SCH ×2 (06:15→10:35)
[2023-05-14 06:41] LABS: POTASSIUM 3.5 mmol/L (3.5-5.1)
[2023-05-14] MEDS: IPRATROPIUM/ALBUTEROL SULFATE 3 ML SOLUTION IH SCH ×2 (07:14→11:37)
[2023-05-14] MEDS ORDERED: GLIPIZIDE 5 MG TABLET PO SCH (07:30)
[2023-05-14] MEDS ORDERED: NON-FORMULARY MEDICATION 1 EACH (Multivitamin/Iron/Folic Acid (Centrum Adults Tablet) 1 EA PO SCH (09:00)
[2023-05-14] MEDS ORDERED: ASPIRIN 81MG CHEW TAB PO SCH (09:00)
[2023-05-14] MEDS ORDERED: NON-FORMULARY MEDICATION 1 EACH (Glipizide 10 MG) PO SCH (09:00)
[2023-05-14] MEDS ORDERED: LORATADINE 10 MG TABLET PO SCH (09:00)
[2023-05-14] MEDS ORDERED: MULTIVITAMIN TABLET PO SCH (09:00)
[2023-05-14] MEDS ORDERED: EMPAGLIFLOZIN 25MG TABLET PO SCH (09:00)
[2023-05-14] MEDS ORDERED: HYDRALAZINE 25MG TABLET PO SCH (09:00)
[2023-05-14] MEDS ORDERED: NON-FORMULARY MEDICATION 1 EACH (Cetirizine HCl 10 MG) PO SCH (09:00)
[2023-05-14] MEDS: CEFTRIAXONE 1G VIAL IVPB SCH (10:36)
[2023-05-14] MEDS: FUROSEMIDE 20 MG TABLET PO SCH (10:36)
[2023-05-14] MEDS: FAMOTIDINE 20MG VIAL IV SCH (10:37)
[2023-05-14] MEDS ORDERED: CEPH500B PO (11:39)
[2023-05-14] MEDS ORDERED: HYDR25 PO (11:39)
== END 2023-05-14 14:30 | disposition home or self-care (01) | DRG 193 ==
LOC: EDH 05:29 → EDHIP 09:49 → 3AH 05-13 15:30
PROVIDERS: ADMIT Internal Medicine; ATTEND Internal Medicine
DX: J18.9 Pneumonia, unspecified organism (principal); J96.01 Acute respiratory failure with hypoxia; N17.9 Acute kidney failure, unspecified; N39.0 Urinary tract infection, site not specified; I13.0 Hypertensive heart and chronic kidney disease with heart failure and stage 1 through stage 4 chronic kidney disease, or unspecified chronic kidney disease; Z20.822 Contact with and (suspected) exposure to COVID-19; N18.30 Chronic kidney disease, stage 3 unspecified; E11.22 Type 2 diabetes mellitus with diabetic chronic kidney disease; I50.9 Heart failure, unspecified; B96.1 Klebsiella pneumoniae [K. pneumoniae] as the cause of diseases classified elsewhere; M10.9 Gout, unspecified; E78.00 Pure hypercholesterolemia, unspecified; I25.10 Atherosclerotic heart disease of native coronary artery without angina pectoris; N40.0 Benign prostatic hyperplasia without lower urinary tract symptoms; Z86.16 Personal history of COVID-19; Z87.440 Personal history of urinary (tract) infections; Z79.899 Other long term (current) drug therapy; Z90.49 Acquired absence of other specified parts of digestive tract; Z79.84 Long term (current) use of oral hypoglycemic drugs
CPT/HCPCS: 36415; 36600; 71045; 76770; 80048; 80053; 81001; 82435; 82550; 82570; 82803; 82947; 82948; 83605; 83735; 83880; 84132; 84295; 84300; 84443; 84484; 85018; 85025; 85027; 87040; 87071; 87077; 87088; 87186; 87205; 87635; 87804; 93005; 93970; 94640; 94664; 96365; 96375; C9803; G0378; J0456; J0696; J1650; J1815; J1940; J2270; J2405; J3490

== ENCOUNTER 2023-09-11 00:37 | Emergency (ER) | payer OTHER ==
[~2023-09-11] VITALS: Ht 180.3 cm; Wt 97.1 kg
[~2023-09-11 00:37] MED LIST changes: +ASPI-1114 PO; +ATOR40TA71 PO; -BACL10TA PO; +CEPH500B PO; +CETI10TA57 PO; +EMPA25TA PO; -ENAL-91 PO; -FERR-82 PO; +FURO20TA4 PO; -HYDR100T27 PO; +HYDR25 PO; -METOPROLOL PO; -SITA50TA PO
[2023-09-11 01:29] LABS: BASOPHILS # (AUTO) 0.05 K/uL (0.00-0.20); BASOPHILS % (AUTO) 0.8 % (0.0-5.0); EOSINOPHILS # (AUTO) 0.44 K/uL (0.00-0.70); EOSINOPHILS % (AUTO) 6.9 % (0.0-8.0); HEMATOCRIT 36.1 % (42-54); IMMATURE GRANULOCYTE ABSOLUTE 0.01 K/uL (0-1); LYMPHOCYTES # (AUTO) 1.7 K/uL (1.0-4.8); MEAN CORPUSCULAR HEMOGLOBIN 29.2 pg (27.0-33.0); MEAN CORPUSCULAR HGB CONC 32.4 g/dL (32.0-36.0); MONOCYTES # (AUTO) 0.6 K/uL (0.1-1.0); MONOCYTES % (AUTO) 10.1 % (3.0-13.0); NEUTROPHILS # (AUTO) 3.5 K/uL (1.8-7.7); PLATELET COUNT (AUTO) 203 K/uL (130-400); RED BLOOD CELL COUNT(AUTO) 4.01 MIL/uL (4.50-6.20); RED CELL DISTRIBUTION WIDTH 17.1 % (11.0-15.5); WHITE BLOOD COUNT (AUTO) 6.3 K/uL (4.8-10.8)
[2023-09-11 02:33] LABS: APPEARANCE,URINE CLEAR (CLEAR); BILIRUBIN,URINE NEGATIVE (NEGATIVE); COLOR,URINE LIGHT-YELLOW (YELLOW); GLUCOSE, URINE (UA) 150 mg/dL (NEGATIVE); KETONES,URINE NEGATIVE (NEGATIVE); LEUKOCYTE ESTERASE ,URINE 500 Leu/uL (NEGATIVE); NITRATE,URINE NEGATIVE (NEGATIVE); PROTEIN,URINE 300 mg/dL (NEGATIVE); UROBILINOGEN,URINE 0.2 mg/dL (0.2-1.0)
[2023-09-11 02:34] LABS: ADD UA MICROSCOPIC YES
[2023-09-11 02:39] LABS: BACTERIA,URINE RARE /HPF (None Seen); WBC,URINE TNTC /HPF (0-1); YEAST,URINE BUDDING RARE /HPF (None Seen)
[2023-09-11 03:07] LABS: CREATININE 2.1 mg/dL (0.5-1.3); POTASSIUM 4.6 mmol/L (3.5-5.1)
[2023-09-11 03:12] LABS: BILIRUBIN,TOTAL 0.4 mg/dL (0.2-1.0); TOTAL PROTEIN, SERUM 6.9 g/dL (6.0-8.3)
[2023-09-11 04:14] VITALS: BP 124/46; PULSE 48; RESP 16; O2SAT 98
[2023-09-11] MEDS ORDERED: CEPH500T PO (04:33)
== END 2023-09-11 04:47 | disposition home or self-care (01) ==
LOC: EDH 00:37
DX: N39.0 Urinary tract infection, site not specified (principal); R53.1 Weakness; I12.9 Hypertensive chronic kidney disease with stage 1 through stage 4 chronic kidney disease, or unspecified chronic kidney disease; E11.22 Type 2 diabetes mellitus with diabetic chronic kidney disease; N18.30 Chronic kidney disease, stage 3 unspecified; E78.00 Pure hypercholesterolemia, unspecified; Z79.82 Long term (current) use of aspirin; Z79.84 Long term (current) use of oral hypoglycemic drugs; Z79.899 Other long term (current) drug therapy
CPT/HCPCS: 36415; 71045; 80053; 81001; 83880; 84484; 85025; 87077; 87088; 87186; 93005

== ENCOUNTER → 2025-04-29 | Day surgery (SDC) | payer OTHER ==
[~2025-04-29] MED LIST changes: -AMLO-257 PO; +AMLO2.5T2 PO; -CEPH500B PO; +DOXA2TAB2 PO; +GLIP10TA16 PO; -GLIP10TA9 PO; +METO25 PO; +TELM40TA8 PO
[2025-04-29 09:55] LABS: IMMATURE GRANULOCYTE ABSOLUTE 0.01 K/uL (0-1); NUCLEATED RED BLOOD CELLS 0.0 % (0.0-0.19); PLATELET COUNT (AUTO) 187 K/uL (130-400); RED BLOOD CELL COUNT(AUTO) 2.47 MIL/uL (4.50-6.20); RED CELL DISTRIBUTION WIDTH 13.7 % (11.0-15.5); WHITE BLOOD COUNT (AUTO) 6.3 K/uL (4.8-10.8)
[2025-04-29 10:05] LABS: INR 1.04 (0.85-1.15)
--- NOTE | 2025-04-29 11:56 | HMCIMG ---
EXAM: CR Chest, 2 View. CLINICAL HISTORY: picc verification COMPARISON: None provided. FINDINGS: Right PICC terminates overlying the distal SVC. LUNGS: There is no mass, infiltrate, or acute pulmonary abnormality. PLEURAL SPACES: No pleural effusion or pneumothorax. MEDIASTINUM: The cardiomediastinal silhouette is within normal limits. BONES: No aggressive appearing osseous lesion seen. IMPRESSION: No acute cardiopulmonary pathology is evident. /[place]
== END | disposition home or self-care (01) ==
LOC: DAH 09:25
PROVIDERS: ATTEND Internal Medicine
DX: N39.0 Urinary tract infection, site not specified (principal); Z79.01 Long term (current) use of anticoagulants
CPT/HCPCS: 36415; 71045; 85025; 85610; 85730